=== PATIENT | female | born 1950 | race Caucasian/White ===

== ENCOUNTER 2022-09-20 19:10 | Inpatient (IN) | payer MEDICARE ==
[2022-09-20] MEDS ORDERED: DUONEB 0.5-3 MG/3 ml Neb IH ONE ×2 (19:13→19:24)
[2022-09-20 19:54] LABS: Absolute Neutrophil Ct (ANC) 5.91 x10^3/uL (1.4-6.9); Basophil (Absolute #) 0.04 x10^3/uL (0-0.4); Eosinophil (Absolute #) 0 x10^3/uL (0-0.5); Hematocrit 38.6 % (35-47); Hemoglobin 12.2 g/dL (12.0-16.0); Lymphocyte (Absolute #) 0.82 x10^3/uL (1.0-4.6); Lymphocytes % 10.6 % (24.0-44.0); Mean Cell Volume 94.6 fL (78-100); Mean Corpuscular Hemoglobin 29.9 pg (26-32); Mean Corpuscular Hgb Concent. 31.6 g/dL (32-36); Mean Platelet Volume 10.3 fL (7.5-11.0); Monocyte (Absolute #) 0.89 x10^3/uL (0.0-1.3); Monocytes % 11.5 % (0.0-12.0); Neutrophil % 76.8 % (36.0-66.0); Platelet Count 184 x10^3/uL (150-450); Red Blood Count 4.08 x10^6/uL (4.1-5.4); Red Cell Distribution Width 14.6 % (11.5-14.0); White Blood Count 7.7 x10^3/uL (4.0-10.5)
[2022-09-20 19:54] LABS: A-aADO2 445; ABG HEMOGLOBIN 12.8; ABG POTASSIUM 3.7 (3.5-5.1); ARTERIAL BLD GAS O2 SATURATION 98.8 % (95-100); ARTERIAL BLOOD GAS BASE EXCESS 9.2 (-2.0-2.0); ARTERIAL BLOOD GAS FIO2 100 %; ARTERIAL BLOOD GAS PO2 193 mmHg (75-100); ARTERIAL BLOOD GAS pH 7.39 (7.35-7.45); HCO3- 36.3 (22-28); HGB O2 SAT 89.7 g/dF (94-100); Lactic Acid 1.4 (0.4-2.0)
[2022-09-20 19:55] LABS: ABG SITE RIGHT RADIAL; ALLEN TEST OK? Yes; ARTERIAL BLOOD GAS PCO2 60 mmHg (35-45); CARBOXYHEMOGLOBIN 8.2 % THgb (0.0-6.9)
--- NOTE | 2022-09-20 20:07 | ERPHSYRPT ---
- History of Present Illness Time Seen by Provider: 09/20/22 19:13 Source: patient Exam Limitations: no limitations Patient Subjective Stated Complaint: went to bed at 8pm last night and didn't get up today, was sob, and cough seemed worse today. Triage Nursing Assessment: pt brought in by ambulance. Pts states, "she went to bed at 8pm last night and didn't get up all day". Pt has a chronic smokers cough for years, but the cough has got a little worse. Pt has been weak and fatigued and had a headache for a couple days. Pt was exposed to Flu A on Wednesday. Lungs diminished throughout ant and post, sounds tight. Non-prod cough. 1+ pitting edema to bilat lower ext. Physician History: 72 years old female with history of COPD, tobacco abuse, congestive heart failure presented in the ER via EMS for chief complaint of worsening shortness of breath and cough since last night. Patient reports cough productive of clear to yellow sputum moderate in amount with associated generalized chest tightness. No fever or chills reported. Patient was hypoxic with sats in 70s on EMS arrival, was given Solu-Medrol, DuoNeb and placed on nonrebreather and improved to mid 90s on presentation in the ER. Timing/Duration: yesterday, gradual onset, worse Activities at Onset: rest Severity of Dyspnea-Max: severe Severity of Dyspnea-Current: moderate Possible Cause: unknown cause Modifying Factors: Improves With: oxygen. Worsens With: coughing, exertion Associated Symptoms: cough, chest pain/discomfort, heaviness, leg swelling, productive cough, tightness Allergies/Adverse Reactions: No Known Drug Allergies Allergy (Verified 09/20/22 19:37) Home Medications: Clopidogrel Bisulfate [Plavix] 75 mg PO DAILY 09/20/22 [History] Fluticasone/Salmeterol [Advair 100-50 Diskus] 2 puffs IH DAILY 09/20/22 [History] Furosemide 20 mg [Lasix 20 mg] 20 mg PO TID 09/20/22 [History] Hx Tetanus, Diphtheria Vaccination/Date Given: Yes Hx Influenza Vaccination/Date Given: Yes Hx Pneumococcal Vaccination/Date Given: Yes Immunizations Up to Date: Yes Travel Risk - International Travel Have you traveled outside of the country in past 3 weeks: No - Coronavirus Screening Are you exhibiting any of the following symptoms?: Yes Symptoms: Cough: New Onset, Shortness of Breath, Headaches/Body Aches/Fatigue Close contact with a COVID-19 positive Pt in past 14-21 Days: No - Vaccine Status Have you recieved a Covid-19 vaccination: Yes Patient Accounts Clerk: Moderna - Vaccination Dates Date of 2cond Vaccination (if applicable): . - Review of Systems Constitutional: Fatigue Eyes: No Symptoms Ears, Nose, & Throat: Nose Congestion Respiratory: Cough, Dyspnea, Dyspnea on Exertion (MONTANEZ), Wheezing Cardiac: Edema Abdominal/Gastrointestinal: No Symptoms Genitourinary Symptoms: No Symptoms Musculoskeletal: No Symptoms Skin: No Symptoms Neurological: No Symptoms Psychological: No Symptoms Endocrine: No Symptoms Hematologic/Lymphatic: No Symptoms Immunological/Allergic: No Symptoms - Past Medical History Pertinent Past Medical History: Yes Cardiac History: High Cholesterol, Hypertension Respiratory History: Bronchitis, COPD, Pneumonia, Other Musculoskeletal History: Other GI Medical History: No Pertinent History, Gallbladder Disease History: No Pertinent History Psycho-Social History: No Pertinent History Female Reproductive Disorders: No Pertinent History - Past Surgical History Past Surgical History: Yes Neuro Surgical History: No Pertinent History Cardiac: No Pertinent History Respiratory: No Pertinent History Gastrointestinal: Cholecystectomy Musculoskeletal: No Pertinent History Female Surgical History: Hysterectomy, Tubal Ligation - Social History Smoking Status: Current every day smoker How long have you smoked: 51 years Exposure to second hand smoke: No Drug Use: none Patient Lives Alone: No - Nursing Vital Signs Nursing Vital Signs: Initial Vital Signs Temperature 98.1 F 09/20/22 19:12 Pulse Rate 90 09/20/22 19:12 Respiratory Rate 24 09/20/22 19:12 Blood Pressure 98/61 09/20/22 19:12 O2 Sat by Pulse Oximetry 100 09/20/22 19:12 Pain Scale Pain Intensity 0 - Physical Exam General Appearance: no apparent distress, alert Eye Exam: PERRL/EOMI, eyes nml inspection Ears, Nose, Throat Exam: hearing grossly normal, normal pharynx Neck Exam: normal inspection, non-tender, supple, full range of motion Respiratory Exam: diminished breath sounds, accessory muscle use, crackles/rales, wheezing Cardiovascular/Chest Exam: normal heart sounds, regular rate/rhythm, edema Abdominal/Gastrointestinal Exam: soft, normal bowel sounds, No tenderness Extremity Exam: non-tender, normal range of motion Neurologic Exam: alert, oriented x 3, cooperative, perioperative manager II-XII nml as tested, sensation nml, motor deficits, No normal mood/affect Skin Exam: normal color SpO2 Interpretation: normal, hypoxic, O2 applied SpO2: 100 O2 Delivery: Nasal Cannula Ordered Tests: Active Orders 24 hr Category Date Time Status Medical Voucher Clerk STAT Care 09/20/22 19:14 Active EKG-ER Only STAT Care 09/20/22 19:13 Active IV Insertion STAT Care 09/20/22 19:13 Active Pulse Oximetry (ED) STAT Care 09/20/22 19:13 Active CHEST 1 VIEW (PORTABLE) Stat Exams 09/20/22 19:13 Taken HEAD WITHOUT CONTRAST [CT] Stat Exams 09/20/22 20:18 Taken ARTERIAL BLOOD GASES Stat Lab 09/20/22 19:45 Completed BLOOD CULTURE Stat Lab 09/20/22 17:30 Received CBC W DIFF Stat Lab 09/20/22 17:20 Completed CMP Stat Lab 09/20/22 17:20 Completed Lactic Acid Stat Lab 09/20/22 19:45 Completed MAGNESIUM Stat Lab 09/20/22 17:20 Completed NT PRO BNP Stat Lab 09/20/22 17:20 Completed PROCALCITONIN Stat Lab 09/20/22 17:20 Completed TROPONIN Q4H Lab 09/20/22 17:20 Completed TROPONIN Q4H Lab 09/20/22 23:17 Received TROPONIN Q4H Lab 09/21/22 03:15 Ordered UA W/RFX CULTURE Stat Lab 09/20/22 Ordered Respiratory Therapy Assessment DAILY RT 09/20/22 20:09 Active Transfer Order Routine Transfer 09/20/22 Ordered Medication Summary Generic Name Dose Route Start Last Admin Trade Name Freq PRN Reason Stop Dose Admin Dobutamine HCl/Dextrose 250 mls @ 6.015 mls/hr 09/20/22 23:25 09/20/22 23:26 Dobutrex 500 Mg/D5w 250 Ml IV 10/20/22 23:24 2.5 mcg/kg/min .Q24H PRN 6.015 mls/hr CHF/HYPOTENSION Administration Protocol 2.5 MCG/KG/MIN Discontinued Medications Generic Name Dose Route Start Last Admin Trade Name Freq PRN Reason Stop Dose Admin Albuterol/Ipratropium 3 ml 09/20/22 19:13 09/20/22 19:25 Ipratropium/Albuterol Sulfate 3 Ml Ampul.Neb IH 09/20/22 19:14 3 ml STAT ONE Administration Albuterol/Ipratropium Confirm 09/20/22 19:24 Ipratropium/Albuterol Sulfate 3 Ml Ampul.Neb Administered 09/20/22 19:25 Dose 3 ml IH .STK-MED ONE Aspirin 324 mg 09/20/22 20:51 09/20/22 21:18 Aspirin 81 Mg Tab.Chew PO 09/20/22 20:52 324 mg STAT ONE Administration Ceftriaxone Sodium/Dextrose 2 g in 50 mls @ 100 mls/hr 09/20/22 21:19 09/20/22 22:11 Rocephin 2 Gm-D5w 50ml Bag IV 09/20/22 21:48 100 ml/hr STAT STA 100 mls/hr Administration Azithromycin 500 mg in 250 mls @ 250 mls/hr 09/20/22 21:19 09/20/22 22:34 Zithromax 500 Mg/ 250 Ml Nacl Premix IV 09/20/22 22:18 250 mls/hr STAT STA 250 mls/hr Administration Ceftriaxone Sodium/Dextrose Confirm 09/20/22 22:10 Rocephin 2 Gm-D5w 50ml Bag Administered 09/20/22 22:11 Dose 2 g in 50 mls @ ud IV .STK-MED ONE Oseltamivir Phosphate 75 mg 09/20/22 22:41 09/20/22 22:43 Oseltamivir 75 Mg Cap PO 09/20/22 22:42 75 mg STAT ONE Administration Oseltamivir Phosphate Confirm 09/20/22 22:43 Oseltamivir 75 Mg Cap Administered 09/20/22 22:44 Dose 75 mg PO .STK-MED ONE Lab/Rad Data: Laboratory Result Diagrams 09/20/22 17:20 09/20/22 17:20 Laboratory Results 09/20/22 09/20/22 09/20/22 Range/Units 20:44 19:45 17:20 WBC (4.0-10.5) x10^3/uL RBC (4.1-5.4) x10^6/uL Hgb (12.0-16.0) g/dL Hct (35-47) % MCV (78-100) fL MCH (26-32) pg MCHC (32-36) g/dL RDW (11.5-14.0) % Plt Count (150-450) x10^3/uL MPV (7.5-11.0) fL Gran % (36.0-66.0) % Immature Gran % (Auto) (0.00-0.4) % Nucleat RBC Rel Count (0.00-0.1) % Eos # (Auto) (0-0.5) x10^3/uL Immature Gran # (Auto) (0.00-0.03) x10^3u/L Absolute Lymphs (auto) (1.0-4.6) x10^3/uL Absolute Monos (auto) (0.0-1.3) x10^3/uL Absolute Nucleated RBC (0.00-0.01) x10^3u/L Lymphocytes % (24.0-44.0) % Monocytes % (0.0-12.0) % Eosinophils % (0.00-5.0) % Basophils % (0.0-0.4) % Absolute Granulocytes (1.4-6.9) x10^3/uL Basophils # (0-0.4) x10^3/uL Puncture Site RIGHT RADIAL pCO2 60 H* (35-45) mmHg pO2 193 H* (75-100) mmHg Base Excess 9.2 H (-2.0-2.0) O2 Saturation 89.7 L (94-100) g/dF ABG pH 7.39 (7.35-7.45) ABG HCO3 36.3 H* (22-28) ABG O2 Sat (Measured) 98.8 (95-100) % Nirmal Test Yes A-a Gradient 445 a/A Ratio 0.30 Hemoglobin 12.8 Carboxyhemoglobin 8.2 H* (0.0-6.9) % THgb Methemoglobin 1.0 L (1.4-1.5) % Temperature 37.0 C POC O2 Flow Rate 100 % Sodium (137-145) mmol/L Potassium 3.7 (3.5-5.1) mmol/L Chloride (98-107) mmol/L Carbon Dioxide (22-30) mmol/L Anion Gap (5-15) MEQ/L BUN (7-17) mg/dL Creatinine (0.52-1.04) mg/dL Estimated GFR ML/MIN Glucose (74-106) mg/dL Lactic Acid 1.4 (0.4-2.0) Calcium (8.4-10.2) mg/dL Magnesium (1.6-2.3) mg/dL Total Bilirubin (0.2-1.3) mg/dL AST (14-36) U/L ALT (0-35) U/L Alkaline Phosphatase (38-126) U/L Troponin I (0.000-0.034) ng/mL NT-Pro-B Natriuret Pep (0-900) pg/mL Serum Total Protein (6.3-8.2) g/dL Albumin (3.5-5.0) g/dL Procalcitonin 0.290 H (0.030-0.080) ng/mL Influenza Type A Ag POSITIVE (NEGATIVE) Influenza Type B Ag NEGATIVE (NEGATIVE) RSV (PCR) NEGATIVE (Negative) SARS-CoV-2 (PCR) NEGATIVE (NEGATIVE) 09/20/22 09/20/22 09/20/22 Range/Units 17:20 17:20 17:20 WBC 7.7 (4.0-10.5) x10^3/uL RBC 4.08 L (4.1-5.4) x10^6/uL Hgb 12.2 (12.0-16.0) g/dL Hct 38.6 (35-47) % MCV 94.6 (78-100) fL MCH 29.9 (26-32) pg MCHC 31.6 L (32-36) g/dL RDW 14.6 H (11.5-14.0) % Plt Count 184 (150-450) x10^3/uL MPV 10.3 (7.5-11.0) fL Gran % 76.8 H (36.0-66.0) % Immature Gran % (Auto) 0.6 H (0.00-0.4) % Nucleat RBC Rel Count 0.0 (0.00-0.1) % Eos # (Auto) 0 (0-0.5) x10^3/uL Immature Gran # (Auto) 0.05 H (0.00-0.03) x10^3u/L Absolute Lymphs (auto) 0.82 L (1.0-4.6) x10^3/uL Absolute Monos (auto) 0.89 (0.0-1.3) x10^3/uL Absolute Nucleated RBC 0.00 (0.00-0.01) x10^3u/L Lymphocytes % 10.6 L (24.0-44.0) % Monocytes % 11.5 (0.0-12.0) % Eosinophils % 0.0 (0.00-5.0) % Basophils % 0.5 (0.0-0.4) % Absolute Granulocytes 5.91 (1.4-6.9) x10^3/uL Basophils # 0.04 (0-0.4) x10^3/uL Puncture Site pCO2 (35-45) mmHg pO2 (75-100) mmHg Base Excess (-2.0-2.0) O2 Saturation (94-100) g/dF ABG pH (7.35-7.45) ABG HCO3 (22-28) ABG O2 Sat (Measured) (95-100) % Nirmal Test A-a Gradient a/A Ratio Hemoglobin Carboxyhemoglobin (0.0-6.9) % THgb Methemoglobin (1.4-1.5) % Temperature C POC O2 Flow Rate % Sodium 135 L (137-145) mmol/L Potassium 3.7 (3.5-5.1) mmol/L Chloride 97 L (98-107) mmol/L Carbon Dioxide 35 H (22-30) mmol/L Anion Gap 6.8 (5-15) MEQ/L BUN 48 H (7-17) mg/dL Creatinine 1.60 H (0.52-1.04) mg/dL Estimated GFR 33.9 ML/MIN Glucose 114 H (74-106) mg/dL Lactic Acid (0.4-2.0) Calcium 7.9 L (8.4-10.2) mg/dL Magnesium 2.0 (1.6-2.3) mg/dL Total Bilirubin 0.70 (0.2-1.3) mg/dL AST 37 H (14-36) U/L ALT 40 H (0-35) U/L Alkaline Phosphatase 117 (38-126) U/L Troponin I 0.435 H* (0.000-0.034) ng/mL NT-Pro-B Natriuret Pep 17067 H (0-900) pg/mL Serum Total Protein 6.2 L (6.3-8.2) g/dL Albumin 3.2 L (3.5-5.0) g/dL Procalcitonin (0.030-0.080) ng/mL Influenza Type A Ag (NEGATIVE) Influenza Type B Ag (NEGATIVE) RSV (PCR) (Negative) SARS-CoV-2 (PCR) (NEGATIVE) - Progress Progress: improved Air Movement: fair Progress Note: 09/20/22 21:30 72 years old is evaluated for severe distress earlier, improved with oxygen and DuoNeb along with steroids on presentation in the ER. She switched from nonrebreather to 4 L oxygen with sats in upper 90s. Chest x-ray showed bilateral edema with airspace disease. Started on antibiotics. EKG showed sinus rhythm with no ST elevations but has a troponin of 0.4. Denies any chest pain. She is given aspirin. Patient blood pressure is borderline and she received almost a liter of fluid while in here. I believe patient's symptoms are a combination of respiratory and CHF exacerbation. Since patient blood pressure is low, will not do Lasix today. While in the ER patient's daughter reported that she is not acting well since yesterday and has some confusion and obtain CT head which is negative. She has no focal neurodeficit, do not think she needs any other work-up for neurology standpoint. Discussed with and patient is admitted. 09/20/22 23:34 Patient has positive influenza A, started on Tamiflu. Patient has low blood pressure and is not in CHF, started on dobutamine. Blood Culture(s) Obtained: Yes Antibiotics given: Yes Discussed with : Carlos Will see patient in: hospital (observation) Counseled pt/family regarding: lab results, diagnosis, need for follow-up, rad results - Departure Departure Disposition: In-patient Admission Clinical Impression: Respiratory failure, CHF exacerbation, Pneumonia, Elevated troponin, Influenza A Condition: Fair Critical Care Time: Yes Critical Care Time(excluding separately billable procedures): Critical 30-74 mins Referrals: NEERAJ VACA MD [Primary Care Provider] - Follow up/PCP as directed Instructions: Heart Failure
[2022-09-20 20:12] LABS: ALBUMIN 3.2 g/dL (3.5-5.0); ANION GAP 6.8 MEQ/L (5-15); BILIRUBIN,TOTAL 0.7 mg/dL (0.2-1.3); Calcium 7.9 mg/dL (8.4-10.2); Creatinine 1 1.6 mg/dL (0.52-1.04); EST GLOMERULAR FILTRATION RATE 33.9 ML/MIN; Potassium 3.7 mmol/L (3.5-5.1); Total Protein 6.2 g/dL (6.3-8.2)
[2022-09-20] MEDS ORDERED: BABY ASPIRIN 81 MG CHEW PO ONE (20:51)
[2022-09-20] MEDS ORDERED: Zithromax 500 MG/ 250 ML NaCl Premix 500 MG/250 ML IVPB IV STA (21:19)
[2022-09-20] MEDS ORDERED: ROCEPHIN 2 Gm-D5w 50ML BAG** 2 G/50 ML IVPB IV STA (21:19)
[2022-09-20 21:25] LABS: INFLUENZA B NEGATIVE (NEGATIVE); RESPIRATORY SYNCTIAL VIRUS NEGATIVE (Negative); SARS-CoV-2 Xpert Express NEGATIVE (NEGATIVE)
[2022-09-20 21:46] LABS: INFLUENZA A POSITIVE (NEGATIVE)
[2022-09-20] MEDS ORDERED: ROCEPHIN 2 Gm-D5w 50ML BAG** 2 G/50 ML IVPB IV ONE (22:10)
[2022-09-20] MEDS ORDERED: Tamiflu 75MG Capsule PO ONE ×2 (22:41→22:43)
[2022-09-20] MEDS ORDERED: DOBUTREX 500 MG/D5W 250 ML 250 ML IV PRN (23:25)
[2022-09-21] MEDS ORDERED: Sodium Chloride 0.9% 1000 ML 1,000 ML IV SCH (00:45)
[2022-09-21] MEDS: DUONEB 0.5-3 MG/3 ml Neb IH SCH ×4 (01:06→19:13)
[2022-09-21 03:54] LABS: ALBUMIN 3.3 g/dL (3.5-5.0); ANION GAP 6.9 MEQ/L (5-15); BILIRUBIN,TOTAL 0.4 mg/dL (0.2-1.3); Creatinine 1 1.76 mg/dL (0.52-1.04); EST GLOMERULAR FILTRATION RATE 30.3 ML/MIN; Potassium 3.5 mmol/L (3.5-5.1); Total Protein 6.2 g/dL (6.3-8.2)
[2022-09-21 04:03] LABS: Absolute Neutrophil Ct (ANC) 5.65 x10^3/uL (1.4-6.9); Basophil (Absolute #) 0.02 x10^3/uL (0-0.4); Eosinophil (Absolute #) 0 x10^3/uL (0-0.5); Hematocrit 38.6 % (35-47); Hemoglobin 11.9 g/dL (12.0-16.0); Lymphocyte (Absolute #) 0.42 x10^3/uL (1.0-4.6); Lymphocytes % 6.7 % (24.0-44.0); Mean Cell Volume 95.3 fL (78-100); Mean Corpuscular Hemoglobin 29.4 pg (26-32); Mean Corpuscular Hgb Concent. 30.8 g/dL (32-36); Mean Platelet Volume 10.6 fL (7.5-11.0); Monocyte (Absolute #) 0.15 x10^3/uL (0.0-1.3); Monocytes % 2.4 % (0.0-12.0); Neutrophil % 89.6 % (36.0-66.0); Platelet Count 165 x10^3/uL (150-450); Red Blood Count 4.05 x10^6/uL (4.1-5.4); Red Cell Distribution Width 14.6 % (11.5-14.0); White Blood Count 6.3 x10^3/uL (4.0-10.5)
[2022-09-21 06:22] LABS: Slide Review 1 YES
[2022-09-21] MEDS ORDERED: Dopamine 400 MG/D5W 250ML PREMIX 250 ML IV PRN (08:56)
--- NOTE | 2022-09-21 08:58 | XRAY ---
Indication: Confusion. Stroke. Multiple contiguous axial images obtained through the head without contrast. Comparison: September 07, 2013 Age-appropriate global atrophy and minimal periventricular degenerative micro-ischemia bilaterally. 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 No acute intracranial hemorrhage, abnormal extra-axial fluid collection, or mass effect. Fourth ventricle is midline without hydrocephalus. Bony calvarium intact. Visualized paranasal sinuses and mastoid air cells are clear. 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 Comment: Preliminary interpretation made by [facility]. No critical discrepancy.
--- NOTE | 2022-09-21 09:00 | XRAY ---
Indication: Cough and short of breath. Comparison: September 07, 2013 Portable chest demonstrates new hazy right infrahilar interstitial alveolar opacity without consolidation/large effusion. Remaining heart and left lung unremarkable. Bony thorax intact again with mild osteopenia and mild dextroscoliosis.
[2022-09-21] MEDS ORDERED: Lasix 40 MG/4 ML IV ONE (09:03)
[2022-09-21] MEDS: PROTONIX 40 MG IV IV SCH (09:47)
[2022-09-21] MEDS: ENOXAPARIN SODIUM SQ SCH (09:47)
[2022-09-21] MEDS: Tamiflu 75MG Capsule PO SCH ×2 (09:48→20:42)
[2022-09-21 11:24] LABS: Bacteria RARE /HPF (NEGATIVE); Epithelial Cells RARE /HPF (FEW); Mucus SLIGHT /HPF (NEGATIVE)
[2022-09-21 11:26] LABS: Appearance CLEAR (CLEAR); Bilirubin NEGATIVE (NEGATIVE); Glucose NEGATIVE (NEGATIVE); Ketones NEGATIVE (NEGATIVE); Specific Gravity 1.025 (1.005-1.025)
[2022-09-21 11:27] LABS: Nitrite NEGATIVE (NEGATIVE); Protein,Urine Dip 30 (Negative); RBC NEGATIVE Ery/ul (0-5); Urine Cultured Indicated? YES; Urobilinogen 0.2 mg/dL (0-1)
[2022-09-21 11:30] LABS: Dipstick done @ ? MAIN LAB
[2022-09-21 11:37] LABS: ANION GAP 8.3 MEQ/L (5-15); Creatinine 1 1.85 mg/dL (0.52-1.04); EST GLOMERULAR FILTRATION RATE 28.6 ML/MIN; MAGNESIUM 2.4 mg/dL (1.6-2.3); Potassium 3.4 mmol/L (3.5-5.1)
[2022-09-21] MEDS: PLAVIX Tablet PO SCH (11:45)
[2022-09-21] MEDS: TYLENOL 325 MG PO PRN (13:45)
--- NOTE | 2022-09-21 14:23 | PCM.HP ---
History of Present Illness - Chief Complaint Chief Complaint: CHF exacerbation, Respiratory failure, pneumonia, elevated troponin, LARRY History of Present Illness: is a 72 year old female.with history of COPD, tobacco abuse, congestive heart failure presented in the ER via EMS for chief complaint of worsening shortness of breath and cough since last night. Patient reports cough productive of clear to yellow sputum moderate in amount with associated generalized chest tightness. No fever or chills reported. Patient was hypoxic with sats in 70s on EMS arrival, was given Solu-Medrol, DuoNeb and placed on nonrebreather and improved to mid 90s on presentation in the ER. Timing/Duration: yesterday, gradual onset, worse Activities at Onset: rest Severity of Dyspnea-Max: severe Severity of Dyspnea-Current: moderate Possible Cause: unknown cause Modifying Factors: Improves With: oxygen. Worsens With: coughing, exertion Associated Symptoms: cough, chest pain/discomfort, heaviness, leg swelling, productive cough, tightness - Review of Systems Constitutional: No Fever, No Chills Eyes: No Symptoms Ears, Nose, & Throat: No Symptoms Respiratory: Cough, Short Of Breath Cardiac: Chest Pain, No Edema, No Syncope Abdominal/Gastrointestinal: No Abdominal Pain, No Nausea, No Vomiting, No Diarrhea Genitourinary Symptoms: No Dysuria Musculoskeletal: No Back Pain, No Neck Pain Skin: No Rash Neurological: No Dizziness, No Focal Weakness, No Sensory Changes Psychological: No Symptoms Endocrine: No Symptoms Hematologic/Lymphatic: No Symptoms Immunological/Allergic: No Symptoms Medications & Allergies Home Medications: Home Medication List Clopidogrel Bisulfate [Plavix] 75 mg PO DAILY 09/20/22 [History Confirmed 09/21/22] Fluticasone/Salmeterol [Advair 100-50 Diskus] 2 puffs IH DAILY 09/20/22 [History Confirmed 09/20/22] Furosemide 20 mg [Lasix 20 mg] 40 mg PO BID 09/20/22 [History Confirmed 09/21/22] Atorvastatin Calcium 20 mg PO DAILY 09/21/22 [History Confirmed 09/21/22] Allergies/Adverse Reactions: Allergies Allergy/AdvReac Type Severity Reaction Status Date / Time No Known Drug Allergies Allergy Verified 09/21/22 01:08 - Past Medical History Past Medical History: Yes Neurological History: Stroke ENT History: No Pertinent History Cardiac History: High Cholesterol, Hypertension Respiratory History: Bronchitis, COPD, Pneumonia, Other Endocrine Medical History: No Pertinent History Musculoskelatal History: Other GI Medical History: No Pertinent History, Gallbladder Disease History: Renal Disease Pyscho-Social History: No Pertinent History Reproductive Disorders: No Pertinent History - Female History Are you now?: No - Past Surgical History Past Surgical History: Yes Neuro Surgical History: No Pertinent History Cardiac History: No Pertinent History Respiratory Surgery: No Pertinent History GI Surgical History: Cholecystectomy Genitourinary Surgical Hx: No Pertinent History Musculskeletal Surgical Hx: No Pertinent History Female Surgical History: Hysterectomy, Tubal Ligation - Social History Smoking Status: Current every day smoker How long have you smoked: 51 years Exposure to second hand smoke: No Alcohol: None Drug Use: none - Physical Exam Vital Signs: Vital Signs - 24 hr Temp Pulse Resp BP BP Pulse Ox 09/21/22 14:00 98.1 F 90 23 83/50 96 09/21/22 13:31 83 18 95 09/21/22 13:00 85 16 93/52 97 09/21/22 12:00 79 09/21/22 11:30 82 86/50 09/21/22 11:00 98.1 F 88 24 90/52 90 L 09/21/22 10:46 50 L 89/46 09/21/22 09:46 101 H 93/56 09/21/22 09:30 81 24 93/64 92 L 09/21/22 08:46 96 H 24 88/53 92 L 09/21/22 08:00 97.8 F 101 H 24 81/45 92 L 09/21/22 07:00 94 H 24 87/53 90 L 09/21/22 06:54 92 H 18 96 09/21/22 06:00 89 19 89/53 100 09/21/22 05:00 89 21 89/50 98 09/21/22 04:00 97.3 F 91 H 22 94/51 97 09/21/22 03:00 97.1 F 91 H 22 97/54 93 L 09/21/22 01:12 98.5 F 90 17 93/55 97 09/21/22 01:06 92 H 16 97 09/21/22 00:00 103 H 18 99/58 95 09/20/22 23:53 96 H 20 98/56 95 09/20/22 23:35 100 12/04/22 23:21 77 20 82/58 95 09/20/22 23:00 78 20 78/52 95 09/20/22 22:00 81 24 97/62 96 09/20/22 21:00 83 24 91/65 98 09/20/22 20:16 85 18 92/63 100 09/20/22 19:59 97 09/20/22 19:25 81 28 H 100 09/20/22 19:21 24 100 09/20/22 19:12 98.1 F 90 24 98/61 100 General Appearance: no apparent distress, alert Neurologic Exam: alert, oriented x 3, cooperative, normal mood/affect, nml cerebellar function, nml station & gait, sensation nml, No motor deficits Eye Exam: PERRL/EOMI, eyes nml inspection Ears, Nose, Throat Exam: normal ENT inspection, TMs normal, pharynx normal, moist mucous membranes Neck Exam: normal inspection, non-tender, supple, full range of motion Respiratory Exam: diminished breath sounds, crackles/rales, rhonchi, wheezing, No respiratory distress Cardiovascular Exam: regular rate/rhythm, normal heart sounds, normal peripheral pulses Gastrointestinal/Abdomen Exam: soft, normal bowel sounds, No tenderness, No mass Back Exam: normal inspection, normal range of motion, No CVA tenderness, No vertebral tenderness Extremity Exam: normal inspection, normal range of motion, pelvis stable Skin Exam: normal color, warm, dry, No rash Lymphatic Exam: No adenopathy Results - Labs Lab/Micro Results: Lab Results-Last 24 Hours 09/20/22 09/20/22 09/20/22 Range/Units 17:20 17:20 17:20 WBC 7.7 (4.0-10.5) x10^3/uL RBC 4.08 L (4.1-5.4) x10^6/uL Hgb 12.2 (12.0-16.0) g/dL Hct 38.6 (35-47) % MCV 94.6 (78-100) fL MCH 29.9 (26-32) pg MCHC 31.6 L (32-36) g/dL RDW 14.6 H (11.5-14.0) % Plt Count 184 (150-450) x10^3/uL MPV 10.3 (7.5-11.0) fL Gran % 76.8 H (36.0-66.0) % Immature Gran % (Auto) 0.6 H (0.00-0.4) % Nucleat RBC Rel Count 0.0 (0.00-0.1) % Eos # (Auto) 0 (0-0.5) x10^3/uL Immature Gran # (Auto) 0.05 H (0.00-0.03) x10^3u/L Absolute Lymphs (auto) 0.82 L (1.0-4.6) x10^3/uL Absolute Monos (auto) 0.89 (0.0-1.3) x10^3/uL Absolute Nucleated RBC 0.00 (0.00-0.01) x10^3u/L Lymphocytes % 10.6 L (24.0-44.0) % Monocytes % 11.5 (0.0-12.0) % Eosinophils % 0.0 (0.00-5.0) % Basophils % 0.5 (0.0-0.4) % Absolute Granulocytes 5.91 (1.4-6.9) x10^3/uL Basophils # 0.04 (0-0.4) x10^3/uL Puncture Site pCO2 (35-45) mmHg pO2 (75-100) mmHg Base Excess (-2.0-2.0) O2 Saturation (94-100) g/dF ABG pH (7.35-7.45) ABG HCO3 (22-28) ABG O2 Sat (Measured) (95-100) % Nirmal Test A-a Gradient a/A Ratio Hemoglobin Carboxyhemoglobin (0.0-6.9) % THgb Methemoglobin (1.4-1.5) % Temperature C POC O2 Flow Rate % Sodium 135 L (137-145) mmol/L Potassium 3.7 (3.5-5.1) mmol/L Chloride 97 L (98-107) mmol/L Carbon Dioxide 35 H (22-30) mmol/L Anion Gap 6.8 (5-15) MEQ/L BUN 48 H (7-17) mg/dL Creatinine 1.60 H (0.52-1.04) mg/dL Estimated GFR 33.9 ML/MIN Glucose 114 H (74-106) mg/dL Lactic Acid (0.4-2.0) Calcium 7.9 L (8.4-10.2) mg/dL Magnesium 2.0 (1.6-2.3) mg/dL Total Bilirubin 0.70 (0.2-1.3) mg/dL AST 37 H (14-36) U/L ALT 40 H (0-35) U/L Alkaline Phosphatase 117 (38-126) U/L Troponin I 0.435 H* (0.000-0.034) ng/mL NT-Pro-B Natriuret Pep 07953 H (0-900) pg/mL Serum Total Protein 6.2 L (6.3-8.2) g/dL Albumin 3.2 L (3.5-5.0) g/dL Procalcitonin (0.030-0.080) ng/mL Urinalys Dipstick Clnc Urine Color (YELLOW) Urine Appearance (CLEAR) Urine pH (5-6) Ur Specific [place] (1.005-1.025) POC Urine Protein Conf (Negative) Urine Ketones (NEGATIVE) Urine Nitrite (NEGATIVE) Urine Bilirubin (NEGATIVE) Urine Urobilinogen (0-1) mg/dL Urine Leukocytes (NEGATIVE) Urine WBC (Auto) (0-5) /HPF Urine RBC (Auto) (0-2) /HPF U Hyaline Cast (Auto) (0-2) /LPF U Epithel Cells (Auto) (FEW) /HPF Urine Bacteria (Auto) (NEGATIVE) /HPF Urine RBC (0-5) John/ul Urine Mucus (Auto) (NEGATIVE) /HPF Ur Culture Indicated? Urine Glucose (NEGATIVE) mg/dL Influenza Type A Ag (NEGATIVE) Influenza Type B Ag (NEGATIVE) RSV (PCR) (Negative) SARS-CoV-2 (PCR) (NEGATIVE) Slides for Path Review 09/20/22 09/20/22 09/20/22 Range/Units 17:20 19:45 20:44 WBC (4.0-10.5) x10^3/uL RBC (4.1-5.4) x10^6/uL Hgb (12.0-16.0) g/dL Hct (35-47) % MCV (78-100) fL MCH (26-32) pg MCHC (32-36) g/dL RDW (11.5-14.0) % Plt Count (150-450) x10^3/uL MPV (7.5-11.0) fL Gran % (36.0-66.0) % Immature Gran % (Auto) (0.00-0.4) % Nucleat RBC Rel Count (0.00-0.1) % Eos # (Auto) (0-0.5) x10^3/uL Immature Gran # (Auto) (0.00-0.03) x10^3u/L Absolute Lymphs (auto) (1.0-4.6) x10^3/uL Absolute Monos (auto) (0.0-1.3) x10^3/uL Absolute Nucleated RBC (0.00-0.01) x10^3u/L Lymphocytes % (24.0-44.0) % Monocytes % (0.0-12.0) % Eosinophils % (0.00-5.0) % Basophils % (0.0-0.4) % Absolute Granulocytes (1.4-6.9) x10^3/uL Basophils # (0-0.4) x10^3/uL Puncture Site RIGHT RADIAL pCO2 60 H* (35-45) mmHg pO2 193 H* (75-100) mmHg Base Excess 9.2 H (-2.0-2.0) O2 Saturation 89.7 L (94-100) g/dF ABG pH 7.39 (7.35-7.45) ABG HCO3 36.3 H* (22-28) ABG O2 Sat (Measured) 98.8 (95-100) % Nirmal Test Yes A-a Gradient 445 a/A Ratio 0.30 Hemoglobin 12.8 Carboxyhemoglobin 8.2 H* (0.0-6.9) % THgb Methemoglobin 1.0 L (1.4-1.5) % Temperature 37.0 C POC O2 Flow Rate 100 % Sodium (137-145) mmol/L Potassium 3.7 (3.5-5.1) mmol/L Chloride (98-107) mmol/L Carbon Dioxide (22-30) mmol/L Anion Gap (5-15) MEQ/L BUN (7-17) mg/dL Creatinine (0.52-1.04) mg/dL Estimated GFR ML/MIN Glucose (74-106) mg/dL Lactic Acid 1.4 (0.4-2.0) Calcium (8.4-10.2) mg/dL Magnesium (1.6-2.3) mg/dL Total Bilirubin (0.2-1.3) mg/dL AST (14-36) U/L ALT (0-35) U/L Alkaline Phosphatase (38-126) U/L Troponin I (0.000-0.034) ng/mL NT-Pro-B Natriuret Pep (0-900) pg/mL Serum Total Protein (6.3-8.2) g/dL Albumin (3.5-5.0) g/dL Procalcitonin 0.290 H (0.030-0.080) ng/mL Urinalys Dipstick Clnc Urine Color (YELLOW) Urine Appearance (CLEAR) Urine pH (5-6) Ur Specific [place] (1.005-1.025) POC Urine Protein Conf (Negative) Urine Ketones (NEGATIVE) Urine Nitrite (NEGATIVE) Urine Bilirubin (NEGATIVE) Urine Urobilinogen (0-1) mg/dL Urine Leukocytes (NEGATIVE) Urine WBC (Auto) (0-5) /HPF Urine RBC (Auto) (0-2) /HPF U Hyaline Cast (Auto) (0-2) /LPF U Epithel Cells (Auto) (FEW) /HPF Urine Bacteria (Auto) (NEGATIVE) /HPF Urine RBC (0-5) John/ul Urine Mucus (Auto) (NEGATIVE) /HPF Ur Culture Indicated? Urine Glucose (NEGATIVE) mg/dL Influenza Type A Ag POSITIVE (NEGATIVE) Influenza Type B Ag NEGATIVE (NEGATIVE) RSV (PCR) NEGATIVE (Negative) SARS-CoV-2 (PCR) NEGATIVE (NEGATIVE) Slides for Path Review 09/20/22 09/21/22 09/21/22 Range/Units 23:17 03:38 03:38 WBC 6.3 (4.0-10.5) x10^3/uL RBC 4.05 L (4.1-5.4) x10^6/uL Hgb 11.9 L (12.0-16.0) g/dL Hct 38.6 (35-47) % MCV 95.3 (78-100) fL MCH 29.4 (26-32) pg MCHC 30.8 L (32-36) g/dL RDW 14.6 H (11.5-14.0) % Plt Count 165 (150-450) x10^3/uL MPV 10.6 (7.5-11.0) fL Gran % 89.6 H (36.0-66.0) % Immature Gran % (Auto) 1.0 H (0.00-0.4) % Nucleat RBC Rel Count 0.0 (0.00-0.1) % Eos # (Auto) 0 (0-0.5) x10^3/uL Immature Gran # (Auto) 0.06 H (0.00-0.03) x10^3u/L Absolute Lymphs (auto) 0.42 L (1.0-4.6) x10^3/uL Absolute Monos (auto) 0.15 (0.0-1.3) x10^3/uL Absolute Nucleated RBC 0.00 (0.00-0.01) x10^3u/L Lymphocytes % 6.7 L (24.0-44.0) % Monocytes % 2.4 (0.0-12.0) % Eosinophils % 0.0 (0.00-5.0) % Basophils % 0.3 (0.0-0.4) % Absolute Granulocytes 5.65 (1.4-6.9) x10^3/uL Basophils # 0.02 (0-0.4) x10^3/uL Puncture Site pCO2 (35-45) mmHg pO2 (75-100) mmHg Base Excess (-2.0-2.0) O2 Saturation (94-100) g/dF ABG pH (7.35-7.45) ABG HCO3 (22-28) ABG O2 Sat (Measured) (95-100) % Nirmal Test A-a Gradient a/A Ratio Hemoglobin Carboxyhemoglobin (0.0-6.9) % THgb Methemoglobin (1.4-1.5) % Temperature C POC O2 Flow Rate % Sodium (137-145) mmol/L Potassium (3.5-5.1) mmol/L Chloride (98-107) mmol/L Carbon Dioxide (22-30) mmol/L Anion Gap (5-15) MEQ/L BUN (7-17) mg/dL Creatinine (0.52-1.04) mg/dL Estimated GFR ML/MIN Glucose (74-106) mg/dL Lactic Acid (0.4-2.0) Calcium (8.4-10.2) mg/dL Magnesium (1.6-2.3) mg/dL Total Bilirubin (0.2-1.3) mg/dL AST (14-36) U/L ALT (0-35) U/L Alkaline Phosphatase (38-126) U/L Troponin I 0.446 H* 0.368 H* (0.000-0.034) ng/mL NT-Pro-B Natriuret Pep (0-900) pg/mL Serum Total Protein (6.3-8.2) g/dL Albumin (3.5-5.0) g/dL Procalcitonin (0.030-0.080) ng/mL Urinalys Dipstick Clnc Urine Color (YELLOW) Urine Appearance (CLEAR) Urine pH (5-6) Ur Specific [place] (1.005-1.025) POC Urine Protein Conf (Negative) Urine Ketones (NEGATIVE) Urine Nitrite (NEGATIVE) Urine Bilirubin (NEGATIVE) Urine Urobilinogen (0-1) mg/dL Urine Leukocytes (NEGATIVE) Urine WBC (Auto) (0-5) /HPF Urine RBC (Auto) (0-2) /HPF U Hyaline Cast (Auto) (0-2) /LPF U Epithel Cells (Auto) (FEW) /HPF Urine Bacteria (Auto) (NEGATIVE) /HPF Urine RBC (0-5) John/ul Urine Mucus (Auto) (NEGATIVE) /HPF Ur Culture Indicated? Urine Glucose (NEGATIVE) mg/dL Influenza Type A Ag (NEGATIVE) Influenza Type B Ag (NEGATIVE) RSV (PCR) (Negative) SARS-CoV-2 (PCR) (NEGATIVE) Slides for Path Review YES 09/21/22 09/21/22 09/21/22 Range/Units 03:38 11:22 Unknown WBC (4.0-10.5) x10^3/uL RBC (4.1-5.4) x10^6/uL Hgb (12.0-16.0) g/dL Hct (35-47) % MCV (78-100) fL MCH (26-32) pg MCHC (32-36) g/dL RDW (11.5-14.0) % Plt Count (150-450) x10^3/uL MPV (7.5-11.0) fL Gran % (36.0-66.0) % Immature Gran % (Auto) (0.00-0.4) % Nucleat RBC Rel Count (0.00-0.1) % Eos # (Auto) (0-0.5) x10^3/uL Immature Gran # (Auto) (0.00-0.03) x10^3u/L Absolute Lymphs (auto) (1.0-4.6) x10^3/uL Absolute Monos (auto) (0.0-1.3) x10^3/uL Absolute Nucleated RBC (0.00-0.01) x10^3u/L Lymphocytes % (24.0-44.0) % Monocytes % (0.0-12.0) % Eosinophils % (0.00-5.0) % Basophils % (0.0-0.4) % Absolute Granulocytes (1.4-6.9) x10^3/uL Basophils # (0-0.4) x10^3/uL Puncture Site pCO2 (35-45) mmHg pO2 (75-100) mmHg Base Excess (-2.0-2.0) O2 Saturation (94-100) g/dF ABG pH (7.35-7.45) ABG HCO3 (22-28) ABG O2 Sat (Measured) (95-100) % Nirmal Test A-a Gradient a/A Ratio Hemoglobin Carboxyhemoglobin (0.0-6.9) % THgb Methemoglobin (1.4-1.5) % Temperature C POC O2 Flow Rate % Sodium 138 140 (137-145) mmol/L Potassium 3.5 3.4 L (3.5-5.1) mmol/L Chloride 97 L 99 (98-107) mmol/L Carbon Dioxide 37 H 36 H (22-30) mmol/L Anion Gap 6.9 8.3 (5-15) MEQ/L BUN 53 H 58 H (7-17) mg/dL Creatinine 1.76 H 1.85 H (0.52-1.04) mg/dL Estimated GFR 30.3 28.6 ML/MIN Glucose 180 H 118 H (74-106) mg/dL Lactic Acid (0.4-2.0) Calcium 8.0 L 8.0 L (8.4-10.2) mg/dL Magnesium 2.4 H (1.6-2.3) mg/dL Total Bilirubin 0.40 (0.2-1.3) mg/dL AST 32 (14-36) U/L ALT 39 H (0-35) U/L Alkaline Phosphatase 105 (38-126) U/L Troponin I (0.000-0.034) ng/mL NT-Pro-B Natriuret Pep (0-900) pg/mL Serum Total Protein 6.2 L (6.3-8.2) g/dL Albumin 3.3 L (3.5-5.0) g/dL Procalcitonin (0.030-0.080) ng/mL Urinalys Dipstick Clnc MAIN LAB Urine Color YELLOW (YELLOW) Urine Appearance CLEAR (CLEAR) Urine pH 5.0 (5-6) Ur Specific [place] 1.025 (1.005-1.025) POC Urine Protein Conf 30 A (Negative) Urine Ketones NEGATIVE (NEGATIVE) Urine Nitrite NEGATIVE (NEGATIVE) Urine Bilirubin NEGATIVE (NEGATIVE) Urine Urobilinogen 0.2 (0-1) mg/dL Urine Leukocytes NEGATIVE (NEGATIVE) Urine WBC (Auto) 3-5 A (0-5) /HPF Urine RBC (Auto) NONE (0-2) /HPF U Hyaline Cast (Auto) 11-25 A (0-2) /LPF U Epithel Cells (Auto) RARE (FEW) /HPF Urine Bacteria (Auto) RARE (NEGATIVE) /HPF Urine RBC NEGATIVE (0-5) John/ul Urine Mucus (Auto) SLIGHT A (NEGATIVE) /HPF Ur Culture Indicated? YES Urine Glucose NEGATIVE (NEGATIVE) mg/dL Influenza Type A Ag (NEGATIVE) Influenza Type B Ag (NEGATIVE) RSV (PCR) (Negative) SARS-CoV-2 (PCR) (NEGATIVE) Slides for Path Review - Radiology Impressions Radiology Exams & Impressions: Radiology Procedures Category Date Time Status CHEST 1 VIEW (PORTABLE) Stat Exams 09/20/22 19:13 Completed HEAD WITHOUT CONTRAST [CT] Stat Exams 09/20/22 20:18 Completed - Other Procedures and Tests Respiratory Therapy 09/20/22 20:09 Respiratory Therapy Assessment DAILY 09/21/22 00:07 Oxygen Nasal Cannula 4 lpm Assessment/Plan (1) Sepsis, viral Current Visit: Yes Status: Acute Assessment & Plan: Chief Complaint Diagnosis CHF exacerbation, Respiratory failure, pneumonia , elevated troponin, LARRY Allergies Allergy/AdvReac Type Severity Reaction Status Date / Time No Known Drug Allergies Allergy Verified 09/21/22 01:08 Vital Signs (Last 24 hours) Temp Pulse Resp BP BP Pulse Ox 09/21/22 14:00 98.1 F 90 23 83/50 96 09/21/22 13:31 83 18 95 09/21/22 13:00 85 16 93/52 97 09/21/22 12:00 79 09/21/22 11:30 82 86/50 09/21/22 11:00 98.1 F 88 24 90/52 90 L 09/21/22 10:46 50 L 89/46 09/21/22 09:46 101 H 93/56 09/21/22 09:30 81 24 93/64 92 L 09/21/22 08:46 96 H 24 88/53 92 L 09/21/22 08:00 97.8 F 101 H 24 81/45 92 L 09/21/22 07:00 94 H 24 87/53 90 L 09/21/22 06:54 92 H 18 96 09/21/22 06:00 89 19 89/53 100 09/21/22 05:00 89 21 89/50 98 09/21/22 04:00 97.3 F 91 H 22 94/51 97 09/21/22 03:00 97.1 F 91 H 22 97/54 93 L 09/21/22 01:12 98.5 F 90 17 93/55 97 09/21/22 01:06 92 H 16 97 09/21/22 00:00 103 H 18 99/58 95 09/20/22 23:53 96 H 20 98/56 95 09/20/22 23:35 100 09/20/22 23:21 77 20 82/58 95 09/20/22 23:00 78 20 78/52 95 09/20/22 22:00 81 24 97/62 96 09/20/22 21:00 83 24 91/65 98 09/20/22 20:16 85 18 92/63 100 09/20/22 19:59 97 09/20/22 19:25 81 28 H 100 09/20/22 19:21 24 100 09/20/22 19:12 98.1 F 90 24 98/61 100 Home Medications Medication Instructions Recorded Confirmed Last Taken Type Clopidogrel Bisulfate [Plavix] 75 mg PO DAILY 09/20/22 09/21/22 Unknown History Fluticasone/Salmeterol [Advair 2 puffs IH DAILY 09/20/22 09/20/22 Unknown History 100-50 Diskus] Furosemide 20 mg [Lasix 20 40 mg PO BID 09/20/22 09/21/22 Unknown History mg] Atorvastatin Calcium 20 mg PO DAILY 09/21/22 09/21/22 Unknown History Current Medications Generic Name Dose Route Start Last Admin Trade Name Freq PRN Reason Stop Dose Admin Acetaminophen 650 mg 09/21/22 00:07 09/21/22 13:45 Acetaminophen 325 Mg Tablet PO 10/21/22 00:06 650 mg Q4H PRN PRN Administration PAIN AND/OR FEVER Albuterol/Ipratropium 3 ml 09/21/22 01:00 09/21/22 13:26 Ipratropium/Albuterol Sulfate 3 Ml Ampul.Neb IH 10/21/22 00:59 3 ml Q6HRT WOO Administration Clopidogrel Bisulfate 75 mg 09/21/22 11:00 09/21/22 11:45 Clopidogrel Bisulfate 75 Mg Tablet PO 10/21/22 10:59 75 mg DAILY WOO Administration Enoxaparin Sodium 40 mg 09/21/22 10:00 09/21/22 09:47 Enoxaparin Sodium 40 Mg/0.4 Ml Syringe SQ 10/21/22 09:59 40 mg DAILY WOO Administration Furosemide 40 mg 09/21/22 17:00 Furosemide 40 Mg Tablet PO 10/21/22 16:59 BID DIURETIC WOO Ceftriaxone Sodium/Dextrose 1 g in 50 mls @ 100 mls/hr 09/21/22 22:00 Rocephin 1 Gm-D5w 50 Ml Bag IV 09/24/22 21:59 Q24H22 WOO Azithromycin 500 mg in 250 mls @ 250 mls/hr 09/21/22 22:00 Zithromax 500 Mg/ 250 Ml Nacl Premix IV 10/21/22 21:59 Q24H22 WOO Sodium Chloride 1,000 mls @ 20 mls/hr 09/21/22 00:45 09/21/22 02:25 Sodium Chloride 0.9% 1000 Ml IV 10/21/22 00:44 20 mls/hr .Q24H WOO Administration Dopamine HCl/Dextrose 250 mls @ 7.313 mls/hr 09/21/22 08:56 09/21/22 11:30 Dopamine 400 Mg/D5w 250ml Premix IV 10/21/22 08:55 2.5 mcg/kg/min .Q24H PRN 7.313 mls/hr SEVERE HYPOTENSION Titration Protocol 2.5 MCG/KG/MIN Oseltamivir Phosphate 75 mg 09/21/22 10:00 09/21/22 09:48 Oseltamivir 75 Mg Cap PO 09/26/22 09:59 75 mg BID WOO Administration Pantoprazole Sodium 40 mg 09/21/22 10:00 09/21/22 09:47 Pantoprazole 40 Mg Vial IV 10/21/22 09:59 40 mg Q24H10 WOO Administration Fluticasone/Salmeterol 2 puff 09/21/22 19:00 Fluticasone/Salmeterol 45 60 Puff Common Canister IH 10/21/22 18:59 BIDRT WOO Simvastatin 20 mg 09/21/22 22:00 Simvastatin 20 Mg Tablet PO 10/21/22 21:59 HS WOO Discontinued Medications Generic Name Dose Route Start Last Admin Trade Name Freq PRN Reason Stop Dose Admin Albuterol/Ipratropium 3 ml 09/20/22 19:13 09/20/22 19:25 Ipratropium/Albuterol Sulfate 3 Ml Ampul.Neb IH 09/20/22 19:14 3 ml STAT ONE Administration Albuterol/Ipratropium Confirm 09/20/22 19:24 Ipratropium/Albuterol Sulfate 3 Ml Ampul.Neb Administered 09/20/22 19:25 Dose 3 ml IH .STK-MED ONE Aspirin 324 mg 09/20/22 20:51 09/20/22 21:18 Aspirin 81 Mg Tab.Chew PO 09/20/22 20:52 324 mg STAT ONE Administration Furosemide 40 mg 09/21/22 09:03 09/21/22 09:47 Furosemide 40 Mg/4 Ml Vial IV 09/21/22 09:04 40 mg STAT ONE Administration Ceftriaxone Sodium/Dextrose 2 g in 50 mls @ 100 mls/hr 09/20/22 21:19 09/20/22 22:11 Rocephin 2 Gm-D5w 50ml Bag IV 09/20/22 21:48 100 ml/hr STAT STA 100 mls/hr Administration Azithromycin 500 mg in 250 mls @ 250 mls/hr 09/20/22 21:19 09/20/22 22:34 Zithromax 500 Mg/ 250 Ml Nacl Premix IV 09/20/22 22:18 250 mls/hr STAT STA 250 mls/hr Administration Ceftriaxone Sodium/Dextrose Confirm 09/20/22 22:10 Rocephin 2 Gm-D5w 50ml Bag Administered 09/20/22 22:11 Dose 2 g in 50 mls @ ud IV .STK-MED ONE Dobutamine HCl/Dextrose 250 mls @ 6.015 mls/hr 09/20/22 23:25 09/21/22 07:57 Dobutrex 500 Mg/D5w 250 Ml IV 10/20/22 23:24 4.5 mcg/kg/min .Q24H PRN 10.826 mls/hr CHF/HYPOTENSION Titration Protocol 2.5 MCG/KG/MIN Oseltamivir Phosphate 75 mg 09/20/22 22:41 09/20/22 22:43 Oseltamivir 75 Mg Cap PO 09/20/22 22:42 75 mg STAT ONE Administration Oseltamivir Phosphate Confirm 09/20/22 22:43 Oseltamivir 75 Mg Cap Administered 09/20/22 22:44 Dose 75 mg PO .STK-MED ONE Intake & Output (Last 24 hours) 09/19/22 09/20/22 09/21/22 09/22/22 11:59 11:59 11:59 11:59 Intake Total 108 Output Total 825 Balance -717 Weight 78 kg Microbiology Results (Last 24 hours) 09/21/22 Unknown Urine, Catheterized Urine Culture - Pending 09/20/22 17:30 Blood Blood Culture Gram Stain - Pending 09/20/22 17:30 Blood Blood Culture - Pending 09/20/22 17:20 Blood Blood Culture Gram Stain - Pending 09/20/22 17:20 Blood Blood Culture - Pending Laboratory Results (Last 24 hours) 09/21/22 09/21/22 09/21/22 Unknown 11:22 03:38 WBC RBC Hgb Hct MCV MCH MCHC RDW Plt Count MPV Gran % Immature Gran % (Auto) Nucleat RBC Rel Count Eos # (Auto) Immature Gran # (Auto) Absolute Lymphs (auto) Absolute Monos (auto) Absolute Nucleated RBC Lymphocytes % Monocytes % Eosinophils % Basophils % Absolute Granulocytes Basophils # Puncture Site pCO2 pO2 Base Excess O2 Saturation ABG pH ABG HCO3 ABG O2 Sat (Measured) Nirmal Test A-a Gradient a/A Ratio Hemoglobin Carboxyhemoglobin Methemoglobin Temperature POC O2 Flow Rate Sodium 140 138 Potassium 3.4 L 3.5 Chloride 99 97 L Carbon Dioxide 36 H 37 H Anion Gap 8.3 6.9 BUN 58 H 53 H Creatinine 1.85 H 1.76 H Estimated GFR 28.6 30.3 Glucose 118 H 180 H Lactic Acid Calcium 8.0 L 8.0 L Magnesium 2.4 H Total Bilirubin 0.40 AST 32 ALT 39 H Alkaline Phosphatase 105 Troponin I NT-Pro-B Natriuret Pep Serum Total Protein 6.2 L Albumin 3.3 L Procalcitonin Urinalys Dipstick Clnc MAIN LAB Urine Color YELLOW Urine Appearance CLEAR Urine pH 5.0 Ur Specific [place] 1.025 POC Urine Protein Conf 30 A Urine Ketones NEGATIVE Urine Nitrite NEGATIVE Urine Bilirubin NEGATIVE Urine Urobilinogen 0.2 Urine Leukocytes NEGATIVE Urine WBC (Auto) 3-5 A Urine RBC (Auto) NONE U Hyaline Cast (Auto) 11-25 A U Epithel Cells (Auto) RARE Urine Bacteria (Auto) RARE Urine RBC NEGATIVE Urine Mucus (Auto) SLIGHT A Ur Culture Indicated? YES Urine Glucose NEGATIVE Influenza Type A Ag Influenza Type B Ag RSV (PCR) SARS-CoV-2 (PCR) Slides for Path Review 09/21/22 09/21/22 09/20/22 03:38 03:38 23:17 WBC 6.3 RBC 4.05 L Hgb 11.9 L Hct 38.6 MCV 95.3 MCH 29.4 MCHC 30.8 L RDW 14.6 H Plt Count 165 MPV 10.6 Gran % 89.6 H Immature Gran % (Auto) 1.0 H Nucleat RBC Rel Count 0.0 Eos # (Auto) 0 Immature Gran # (Auto) 0.06 H Absolute Lymphs (auto) 0.42 L Absolute Monos (auto) 0.15 Absolute Nucleated RBC 0.00 Lymphocytes % 6.7 L Monocytes % 2.4 Eosinophils % 0.0 Basophils % 0.3 Absolute Granulocytes 5.65 Basophils # 0.02 Puncture Site pCO2 pO2 Base Excess O2 Saturation ABG pH ABG HCO3 ABG O2 Sat (Measured) Nirmal Test A-a Gradient a/A Ratio Hemoglobin Carboxyhemoglobin Methemoglobin Temperature POC O2 Flow Rate Sodium Potassium Chloride Carbon Dioxide Anion Gap BUN Creatinine Estimated GFR Glucose Lactic Acid Calcium Magnesium Total Bilirubin AST ALT Alkaline Phosphatase Troponin I 0.368 H* 0.446 H* NT-Pro-B Natriuret Pep Serum Total Protein Albumin Procalcitonin Urinalys Dipstick Clnc Urine Color Urine Appearance Urine pH Ur Specific [place] POC Urine Protein Conf Urine Ketones Urine Nitrite Urine Bilirubin Urine Urobilinogen Urine Leukocytes Urine WBC (Auto) Urine RBC (Auto) U Hyaline Cast (Auto) U Epithel Cells (Auto) Urine Bacteria (Auto) Urine RBC Urine Mucus (Auto) Ur Culture Indicated? Urine Glucose Influenza Type A Ag Influenza Type B Ag RSV (PCR) SARS-CoV-2 (PCR) Slides for Path Review YES 09/20/22 09/20/22 09/20/22 20:44 19:45 17:20 WBC RBC Hgb Hct MCV MCH MCHC RDW Plt Count MPV Gran % Immature Gran % (Auto) Nucleat RBC Rel Count Eos # (Auto) Immature Gran # (Auto) Absolute Lymphs (auto) Absolute Monos (auto) Absolute Nucleated RBC Lymphocytes % Monocytes % Eosinophils % Basophils % Absolute Granulocytes Basophils # Puncture Site RIGHT RADIAL pCO2 60 H* pO2 193 H* Base Excess 9.2 H O2 Saturation 89.7 L ABG pH 7.39 ABG HCO3 36.3 H* ABG O2 Sat (Measured) 98.8 Nirmal Test Yes A-a Gradient 445 a/A Ratio 0.30 Hemoglobin 12.8 Carboxyhemoglobin 8.2 H* Methemoglobin 1.0 L Temperature 37.0 POC O2 Flow Rate 100 Sodium Potassium 3.7 Chloride Carbon Dioxide Anion Gap BUN Creatinine Estimated GFR Glucose Lactic Acid 1.4 Calcium Magnesium Total Bilirubin AST ALT Alkaline Phosphatase Troponin I NT-Pro-B Natriuret Pep Serum Total Protein Albumin Procalcitonin 0.290 H Urinalys Dipstick Clnc Urine Color Urine Appearance Urine pH Ur Specific [place] POC Urine Protein Conf Urine Ketones Urine Nitrite Urine Bilirubin Urine Urobilinogen Urine Leukocytes Urine WBC (Auto) Urine RBC (Auto) U Hyaline Cast (Auto) U Epithel Cells (Auto) Urine Bacteria (Auto) Urine RBC Urine Mucus (Auto) Ur Culture Indicated? Urine Glucose Influenza Type A Ag POSITIVE Influenza Type B Ag NEGATIVE RSV (PCR) NEGATIVE SARS-CoV-2 (PCR) NEGATIVE Slides for Path Review 09/20/22 09/20/22 09/20/22 17:20 17:20 17:20 WBC 7.7 RBC 4.08 L Hgb 12.2 Hct 38.6 MCV 94.6 MCH 29.9 MCHC 31.6 L RDW 14.6 H Plt Count 184 MPV 10.3 Gran % 76.8 H Immature Gran % (Auto) 0.6 H Nucleat RBC Rel Count 0.0 Eos # (Auto) 0 Immature Gran # (Auto) 0.05 H Absolute Lymphs (auto) 0.82 L Absolute Monos (auto) 0.89 Absolute Nucleated RBC 0.00 Lymphocytes % 10.6 L Monocytes % 11.5 Eosinophils % 0.0 Basophils % 0.5 Absolute Granulocytes 5.91 Basophils # 0.04 Puncture Site pCO2 pO2 Base Excess O2 Saturation ABG pH ABG HCO3 ABG O2 Sat (Measured) Nirmal Test A-a Gradient a/A Ratio Hemoglobin Carboxyhemoglobin Methemoglobin Temperature POC O2 Flow Rate Sodium 135 L Potassium 3.7 Chloride 97 L Carbon Dioxide 35 H Anion Gap 6.8 BUN 48 H Creatinine 1.60 H Estimated GFR 33.9 Glucose 114 H Lactic Acid Calcium 7.9 L Magnesium 2.0 Total Bilirubin 0.70 AST 37 H ALT 40 H Alkaline Phosphatase 117 Troponin I 0.435 H* NT-Pro-B Natriuret Pep 43043 H Serum Total Protein 6.2 L Albumin 3.2 L Procalcitonin Urinalys Dipstick Clnc Urine Color Urine Appearance Urine pH Ur Specific [place] POC Urine Protein Conf Urine Ketones Urine Nitrite Urine Bilirubin Urine Urobilinogen Urine Leukocytes Urine WBC (Auto) Urine RBC (Auto) U Hyaline Cast (Auto) U Epithel Cells (Auto) Urine Bacteria (Auto) Urine RBC Urine Mucus (Auto) Ur Culture Indicated? Urine Glucose Influenza Type A Ag Influenza Type B Ag RSV (PCR) SARS-CoV-2 (PCR) Slides for Path Review Orders (Last 24 hours) Category Date Time Status Bedrest ROUTINE Activity 09/21/22 00:07 Active Admit as Inpatient ROUTINE Care 09/21/22 00:07 Active Call Admit Doctor for Orders ON ADMISSION Care 09/21/22 00:07 Completed Channel Account Manager STAT Care 09/20/22 19:14 Completed Code Status Order ROUTINE Care 09/21/22 00:07 Active EKG-ER Only STAT Care 09/20/22 19:13 Completed Fall Protocol Q1H Care 09/21/22 00:07 Active IV Care Q4H Care 09/21/22 00:07 Active IV Insertion STAT Care 09/20/22 19:13 Completed Neuro Checks Q4H Care 09/21/22 00:07 Active Pulse Oximetry (ED) STAT Care 09/20/22 19:13 Completed Weight,Daily 0600 Care 09/21/22 00:07 Active Heart-Healthy Diet Diet 09/21/22 Breakfast Active CHEST 1 VIEW (PORTABLE) Stat Exams 09/20/22 19:13 Completed HEAD WITHOUT CONTRAST [CT] Stat Exams 09/20/22 20:18 Completed ARTERIAL BLOOD GASES Stat Lab 09/20/22 19:45 Completed BLOOD CULTURE Stat Lab 09/20/22 17:30 Received BMP Urgent Lab 09/21/22 11:22 Completed CBC W DIFF AM.LAB Lab 09/21/22 03:38 Completed CBC W DIFF Stat Lab 09/20/22 17:20 Completed CMP AM.LAB Lab 09/21/22 03:38 Completed CMP Stat Lab 09/20/22 17:20 Completed COVID/FLU/RSV Panel Stat Lab 09/20/22 20:44 Completed CULTURE,URINE Stat Lab 09/21/22 Received Lactic Acid Stat Lab 09/20/22 19:45 Completed MAG [MAGNESIUM] Urgent Lab 09/21/22 11:22 Completed MAGNESIUM Stat Lab 09/20/22 17:20 Completed NT PRO BNP Stat Lab 09/20/22 17:20 Completed PROCALCITONIN Stat Lab 09/20/22 17:20 Completed TROPONIN Q4H Lab 09/20/22 17:20 Completed TROPONIN Q4H Lab 09/20/22 23:17 Completed TROPONIN Q4H Lab 09/21/22 03:38 Completed UA W/RFX CULTURE Stat Lab 09/21/22 Completed Acetaminophen 325 mg [Tylenol 325 mg] Med 09/21/22 00:07 Active 650 mg PO Q4H PRN PRN Albuterol/Ipratropium 3ml Neb* [DUONEB 0.5-3 MG/3 ml Med 09/20/22 19:24 Disco ntinued Neb] 3 ml IH .STK-MED ONE Albuterol/Ipratropium 3ml Neb* [DUONEB 0.5-3 MG/3 ml Med 09/21/22 01:00 Active Neb] 3 ml IH Q6HRT Albuterol/Ipratropium 3ml Neb* [DUONEB 0.5-3 MG/3 ml Med 09/20/22 19:13 Discontinued Neb] 3 ml IH STAT ONE Aspirin 81 gm Chew [Baby Aspirin 81 mg Chew] Med 09/20/22 20:51 Discontinued 324 mg PO STAT ONE Azithromycin 500 mg/250 ml [Zithromax 500 MG/ 250 ML Med 09/21/22 22:00 Active NaCl Premix] 500 mg in 250 ml IV Q24H22 Azithromycin 500 mg/250 ml [Zithromax 500 MG/ 250 ML Med 09/20/22 21:19 Discontinued NaCl Premix] 500 mg in 250 ml IV STAT Ceftriaxone 1 GM/50 ML PREMIX* [ROCEPHIN 1 Gm-D5w 50 ml Med 09/21/22 22:00 Active Bag] 1 g in 50 ml IV Q24H22 Ceftriaxone 2 GM/50 ML PREMIX* [ROCEPHIN 2 Gm-D5w 50ML Med 09/20/22 21:19 Discontinued BAG] 2 g in 50 ml IV STAT Ceftriaxone 2 GM/50 ML PREMIX* [ROCEPHIN 2 Gm-D5w 50ML Med 09/20/22 22:10 Dis continued BAG] 2 g in 50 ml IV UD Clopidogrel Bisulfate [PLAVIX Tablet] Med 09/21/22 11:00 Active 75 mg PO DAILY Dobutamine HCl/D5w Premix [Dobutrex 500 mg/D5w 250 ml] Med 09/20/22 23:25 Discontinued 250 ml IV 2.5 mcg/kg/min Dopamine HCl/Dextrose 5%-Water [Dopamine 400 MG/D5W Med 09/21/22 08:56 Active 250ML PREMIX] 250 ml IV 2.5 mcg/kg/min Enoxaparin Sodium [Enoxaparin Sodium] Med 09/21/22 10:00 Active 40 mg SQ DAILY Fluticasone/Salmeterol 45 [Advair Hfa 45 Common Med 09/21/22 19:00 Active Canister*] 2 puff IH BIDRT Furosemide 40 mg [Lasix 40 MG] Med 09/21/22 17:00 Active 40 mg PO BID DIURETIC Furosemide 40 mg/4 ml [Lasix 40 MG/4 ML] Med 09/21/22 09:03 Discontinued 40 mg IV STAT ONE NaCl 0.9% 1000 ml [Sodium Chloride 0.9% 1000 ML] 1,000 Med 09/21/22 00:45 Active ml IV 20 mls/hr Oseltamivir 75 mg [Tamiflu 75MG Capsule] Med 09/20/22 22:43 Discontinued 75 mg PO .STK-MED ONE Oseltamivir 75 mg [Tamiflu 75MG Capsule] Med 09/21/22 10:00 Active 75 mg PO BID Oseltamivir 75 mg [Tamiflu 75MG Capsule] Med 09/20/22 22:41 Discontinued 75 mg PO STAT ONE Pantoprazole 40 mg [Protonix 40 mg IV] Med 09/21/22 10:00 Active 40 mg IV Q24H10 Simvastatin 20Mg [Zocor 20Mg] Med 09/21/22 22:00 Active 20 mg PO HS Oxygen Nasal Cannula 4 lpm RT 09/21/22 00:07 Active Pulse Oximetry .continuos RT 09/21/22 00:49 Active RT Screen per Nursing Assess ONCE RT 09/21/22 01:29 Completed Respiratory Therapy Assessment DAILY RT 09/20/22 20:09 Active Smoking Cessation Education ONCE RT 09/21/22 01:29 Completed Patient Care Notes (Last 24 hours) 09/21/22 12:49 Respiratory Note by She Vega Patient states she will have her bring in her Advair from home to use while patient is here. Initialized on 09/21/22 12:49 - END OF NOTE 09/21/22 11:40 Case Management Note by Yana Garcia ATTEMPTED TO REACH PATIENT VIA TELEPHONE AND NO ANSWER. WILL F/U TOMORROW TO CHECK ON DC NEEDS. Initialized on 09/21/22 11:40 - END OF NOTE Code(s): A41.89 - OTHER SPECIFIED SEPSIS; B97.89 - OTH VIRAL AGENTS THE CAUSE OF DISEASES CLASSD [id number] (2) CHF exacerbation Current Visit: Yes Status: Acute Code(s): I50.9 - HEART FAILURE, UNSPECIFIED (3) Elevated troponin Current Visit: Yes Status: Acute Code(s): R77.8 - OTHER SPECIFIED ABNORMALITIES OF PLASMA PROTEINS (4) Influenza A Current Visit: Yes Status: Acute Code(s): J10.1 - FLU DUE TO OTH IDENT INFLUENZA VIRUS W OTH RESP MANIFEST (5) Pneumonia Current Visit: Yes Status: Acute Code(s): J18.9 - PNEUMONIA, UNSPECIFIED ORGANISM
[2022-09-21] MEDS ORDERED: Lasix 40 MG PO SCH (17:00)
[2022-09-21] MEDS: Lasix 40 MG/4 ML IV SCH (18:37)
[2022-09-21] MEDS ORDERED: ADVAIR HFA 45/21 COMMON CANISTER IH SCH (19:00)
[2022-09-21 19:32] LABS: A-aADO2 52; ABG HEMOGLOBIN 12.6; ABG POTASSIUM 3.3 (3.5-5.1); ABG SITE RIGHT BRACHIAL; ARTERIAL BLD GAS O2 SATURATION 99.4 % (95-100); ARTERIAL BLOOD GAS BASE EXCESS 10.1 (-2.0-2.0); ARTERIAL BLOOD GAS FIO2 50 %; ARTERIAL BLOOD GAS PCO2 83 mmHg (35-45); ARTERIAL BLOOD GAS PO2 201 mmHg (75-100); ARTERIAL BLOOD GAS pH 7.29 (7.35-7.45); CARBOXYHEMOGLOBIN 1.6 % THgb (0.0-6.9); HCO3- 39.9 (22-28); HGB O2 SAT 97.3 g/dF (94-100); Methhemoglobin 0.5 % (1.4-1.5)
[2022-09-21] MEDS: ZOCOR 20MG PO SCH ×2 (20:42→20:50)
[2022-09-21] MEDS: ROCEPHIN 1 Gm-D5w 50 ml Bag** 1 G/50 ML IVPB IV SCH (20:42)
[2022-09-21] MEDS: Klor Con PO SCH (20:50)
[2022-09-21] MEDS: Zithromax 500 MG/ 250 ML NaCl Premix 500 MG/250 ML IVPB IV SCH (20:52)
[2022-09-21] MEDS ORDERED: LASIX 20 MG PO SCH (22:00)
[2022-09-22] MEDS: DUONEB 0.5-3 MG/3 ml Neb IH SCH ×4 (01:25→18:39)
[2022-09-22] MEDS: Lasix 40 MG/4 ML IV SCH (05:50)
[2022-09-22] MEDS ORDERED: BABY ASPIRIN 81 MG CHEW PO SCH (10:00)
[2022-09-22] MEDS ORDERED: FLUTICASONE IH SCH (10:00)
[2022-09-22] MEDS ORDERED: NON-FORMULARY ITEM (Atorvastatin Calcium [Atorvastatin Calcium] 20 MG Tablet) PO SCH (10:00)
[2022-09-22] MEDS ORDERED: SALMETEROL IH SCH (10:00)
[2022-09-22] MEDS: PROTONIX 40 MG IV IV SCH (12:09)
[2022-09-22] MEDS: ECOTRIN 81 MG PO SCH (12:10)
[2022-09-22] MEDS: ENOXAPARIN SODIUM SQ SCH (12:10)
[2022-09-22] MEDS: Klor Con PO SCH (12:10)
[2022-09-22] MEDS: PLAVIX Tablet PO SCH (12:10)
[2022-09-22] MEDS: Tamiflu 75MG Capsule PO SCH ×2 (12:10→21:53)
--- NOTE | 2022-09-22 12:17 | XRAY ---
Indication: Acute mental status change. Sagittal, coronal, and axial MRI brain performed without contrast using T1, T2, FLAIR, diffusion, and ADC sequences. 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 No acute intracranial hemorrhage, abnormal extra-axial fluid collection, or mass effect. Diffusion images demonstrates 4 mm focus restrictive signal medial right temporal lobe favoring acute ischemia. Fourth ventricle is midline without hydrocephalus. 7/8 cranial nerve complex bilaterally symmetric. Normal flow-void signal within the major intracerebral circulation. Normal appearing craniocervical junction and sella turcica. Paranasal sinuses are clear. Impression: 1. 4 mm focus acute ischemia medial right temporal lobe. 2. Atrophy and degenerative micro-ischemia within normal limits for patient's age. 3. 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
[2022-09-22 12:19] LABS: Hematocrit 42.7 % (35-47); Hemoglobin 12.8 g/dL (12.0-16.0); Mean Cell Volume 98.6 fL (78-100); Mean Corpuscular Hemoglobin 29.6 pg (26-32); Mean Platelet Volume 10.3 fL (7.5-11.0); Platelet Count 193 x10^3/uL (150-450); Red Blood Count 4.33 x10^6/uL (4.1-5.4); Red Cell Distribution Width 14.6 % (11.5-14.0); White Blood Count 8.9 x10^3/uL (4.0-10.5)
[2022-09-22 12:33] LABS: ALBUMIN 3.5 g/dL (3.5-5.0); BILIRUBIN,TOTAL 0.4 mg/dL (0.2-1.3); Creatinine 1 1.71 mg/dL (0.52-1.04); EST GLOMERULAR FILTRATION RATE 31.4 ML/MIN; Potassium 3.9 mmol/L (3.5-5.1); Total Protein 6.6 g/dL (6.3-8.2)
[2022-09-22 13:29] LABS: ANION GAP 3.9 MEQ/L (5-15)
[2022-09-22] MEDS: TYLENOL 325 MG PO PRN (15:44)
[2022-09-22] MEDS ORDERED: K-LYTE PO ONE (17:15)
--- NOTE | 2022-09-22 17:38 | PCM.NOTE ---
Date and Time: 09/22/22 4095 Subjective Assessment: last 24 hours events noted. Labs MRI brain reviewed - Review of Systems Constitutional: Weakness, No Fever, No Chills Eyes: No Symptoms Ears, Nose, & Throat: No Symptoms Respiratory: No Cough, No Short Of Breath Cardiac: No Chest Pain, No Edema, No Syncope Abdominal/Gastrointestinal: No Abdominal Pain, No Nausea, No Vomiting, No Diarrhea Genitourinary Symptoms: No Dysuria Musculoskeletal: No Back Pain, No Neck Pain Skin: No Rash Neurological: No Dizziness, No Focal Weakness, No Sensory Changes Psychological: No Symptoms Endocrine: No Symptoms Hematologic/Lymphatic: No Symptoms Immunological/Allergic: No Symptoms Objective Exam General Appearance: no apparent distress, alert Neurologic Exam: alert, oriented x 3, cooperative, normal mood/affect, nml cerebellar function, sensation nml, No motor deficits Skin Exam: normal color, warm, dry Eye Exam: PERRL, EOMI, eyes nml inspection Ears, Nose, Throat Exam: normal ENT inspection, pharynx normal, moist mucous membranes Neck Exam: normal inspection, non-tender, supple, full range of motion Respiratory Exam: normal breath sounds, lungs clear, No respiratory distress Cardiovascular Exam: regular rate/rhythm, normal heart sounds Gastrointestinal/Abdomen Exam: soft, No tenderness, No mass Extremity Exam: normal inspection, normal range of motion Back Exam: normal inspection, normal range of motion, No CVA tenderness, No vertebral tenderness Pelvic Exam: deferred Rectal Exam: deferred OBJECTIVE DATA Vital Signs: Vital Signs - 24 hr Temp Pulse Resp BP Pulse Ox 09/22/22 16:00 98.2 F 78 24 109/56 92 L 09/22/22 13:46 76 18 96 09/22/22 12:00 97.9 F 71 16 102/56 93 L 09/22/22 07:45 97.5 F 78 16 116/64 97 09/22/22 05:22 75 18 97 09/22/22 04:00 97.1 F 77 18 100/62 98 09/22/22 01:25 74 18 95 09/21/22 20:00 97.3 F 79 20 107/66 83 L 09/21/22 19:13 77 20 96 Pain Assessment - Last Documented Pain Intensity 9 Pain Scale Used 0-10 Pain Scale Intake and Output: Intake & Output 09/20/22 09/21/22 09/22/2222 11:59 11:59 11:59 11:59 Intake Total 108 780 Output Total 825 450 Balance -717 330 Weight 78 kg 77.3 kg Lab Results: Lab Results-Last 24 Hours 09/21/22 09/22/22 09/22/22 Range/Units 19:26 12:19 12:19 WBC 8.9 (4.0-10.5) x10^3/uL RBC 4.33 (4.1-5.4) x10^6/uL Hgb 12.8 (12.0-16.0) g/dL Hct 42.7 (35-47) % MCV 98.6 (78-100) fL MCH 29.6 (26-32) pg MCHC 30.0 L (32-36) g/dL RDW 14.6 H (11.5-14.0) % Plt Count 193 (150-450) x10^3/uL MPV 10.3 (7.5-11.0) fL Puncture Site RIGHT BRACHIAL pCO2 83 H* (35-45) mmHg pO2 201 H* (75-100) mmHg Base Excess 10.1 H (-2.0-2.0) O2 Saturation 97.3 (94-100) g/dF ABG pH 7.29 L (7.35-7.45) ABG HCO3 39.9 H* (22-28) ABG O2 Sat (Measured) 99.4 (95-100) % Nirmal Test NOT APPLICABLE A-a Gradient 52 a/A Ratio 0.79 Hemoglobin 12.6 Carboxyhemoglobin 1.6 (0.0-6.9) % THgb Methemoglobin 0.5 L (1.4-1.5) % Potassium 3.3 L 3.9 (3.5-5.1) Temperature 37.0 C POC O2 Flow Rate 50 % Sodium 142 (137-145) mmol/L Chloride 96 L (98-107) mmol/L Carbon Dioxide 46 H (22-30) mmol/L Anion Gap 3.9 L (5-15) MEQ/L BUN 54 H (7-17) mg/dL Creatinine 1.71 H (0.52-1.04) mg/dL Estimated GFR 31.4 ML/MIN Glucose 78 (74-106) mg/dL Calcium 8.0 L (8.4-10.2) mg/dL Total Bilirubin 0.40 (0.2-1.3) mg/dL AST 32 (14-36) U/L ALT 41 H (0-35) U/L Alkaline Phosphatase 107 (38-126) U/L Troponin I (0.000-0.034) ng/mL Serum Total Protein 6.6 (6.3-8.2) g/dL Albumin 3.5 (3.5-5.0) g/dL 09/22/22 Range/Units 12:19 WBC (4.0-10.5) x10^3/uL RBC (4.1-5.4) x10^6/uL Hgb (12.0-16.0) g/dL Hct (35-47) % MCV (78-100) fL MCH (26-32) pg MCHC (32-36) g/dL RDW (11.5-14.0) % Plt Count (150-450) x10^3/uL MPV (7.5-11.0) fL Puncture Site pCO2 (35-45) mmHg pO2 (75-100) mmHg Base Excess (-2.0-2.0) O2 Saturation (94-100) g/dF ABG pH (7.35-7.45) ABG HCO3 (22-28) ABG O2 Sat (Measured) (95-100) % Nirmal Test A-a Gradient a/A Ratio Hemoglobin Carboxyhemoglobin (0.0-6.9) % THgb Methemoglobin (1.4-1.5) % Potassium (3.5-5.1) Temperature C POC O2 Flow Rate % Sodium (137-145) mmol/L Chloride (98-107) mmol/L Carbon Dioxide (22-30) mmol/L Anion Gap (5-15) MEQ/L BUN (7-17) mg/dL Creatinine (0.52-1.04) mg/dL Estimated GFR ML/MIN Glucose (74-106) mg/dL Calcium (8.4-10.2) mg/dL Total Bilirubin (0.2-1.3) mg/dL AST (14-36) U/L ALT (0-35) U/L Alkaline Phosphatase (38-126) U/L Troponin I 0.171 H* (0.000-0.034) ng/mL Serum Total Protein (6.3-8.2) g/dL Albumin (3.5-5.0) g/dL Radiology Exams: Radiology Procedures Category Date Time Status CHEST 1 VIEW (PORTABLE) Stat Exams 09/20/22 19:13 Completed ECHO W/2D AND DOPPLER [US] Routine Exams 09/22/22 11:23 Taken HEAD WITHOUT CONTRAST [CT] Stat Exams 09/20/22 20:18 Completed MRI BRAIN W/O CONTRAST [MRI] Routine Exams 09/22/22 02:29 Completed Assessment/Plan (1) Sepsis, viral Current Visit: Yes Status: Acute Assessment & Plan: Chief Complaint Diagnosis CHF exacerbation, Respiratory failure, pneumonia , elevated troponin, LARRY Allergies Allergy/AdvReac Type Severity Reaction Status Date / Time No Known Drug Allergies Allergy Verified 09/21/22 01:08 Vital Signs (Last 24 hours) Temp Pulse Resp BP Pulse Ox 09/22/22 16:00 98.2 F 78 24 109/56 92 L 09/22/22 13:46 76 18 96 09/22/22 12:00 97.9 F 71 16 102/56 93 L 09/22/22 07:45 97.5 F 78 16 116/64 97 09/22/22 05:22 75 18 97 09/22/22 04:00 97.1 F 77 18 100/62 98 09/22/22 01:25 74 18 95 09/21/22 20:00 97.3 F 79 20 107/66 83 L 09/21/22 19:13 77 20 96 Home Medications Medication Instructions Recorded Confirmed Last Taken Type Clopidogrel Bisulfate [Plavix] 75 mg PO DAILY 09/20/22 09/21/22 Unknown History Fluticasone/Salmeterol [Advair 2 puffs IH DAILY 09/20/22 09/20/22 Unknown History 100-50 Diskus] Furosemide 20 mg [Lasix 20 40 mg PO BID 09/20/22 09/21/22 Unknown History mg] Atorvastatin Calcium 20 mg PO DAILY 09/21/22 09/21/22 Unknown History Current Medications Generic Name Dose Route Start Last Admin Trade Name Freq PRN Reason Stop Dose Admin Acetaminophen 650 mg 09/21/22 00:07 09/22/22 15:44 Acetaminophen 325 Mg Tablet PO 10/21/22 00:06 650 mg Q4H PRN PRN Administration PAIN AND/OR FEVER Albuterol/Ipratropium 3 ml 09/21/22 01:00 09/22/22 13:38 Ipratropium/Albuterol Sulfate 3 Ml Ampul.Neb IH 10/21/22 00:59 3 ml Q6HRT WOO Administration Aspirin 81 mg 09/22/22 10:00 09/22/22 12:10 Aspirin 81 Mg Tablet.Ec PO 10/22/22 09:59 81 mg QAM WOO Administration Clopidogrel Bisulfate 75 mg 09/21/22 11:00 09/22/22 12:10 Clopidogrel Bisulfate 75 Mg Tablet PO 10/21/22 10:59 75 mg DAILY WOO Administration Methylprednisolone Sodium 0 mg 09/22/22 17:16 Succinate 60 mg/ Sterile Water IV 10/22/22 17:15 2 ml BID WOO Enoxaparin Sodium 40 mg 09/21/22 10:00 09/22/22 12:10 Enoxaparin Sodium 40 Mg/0.4 Ml Syringe SQ 10/21/22 09:59 40 mg DAILY WOO Administration Furosemide 40 mg 09/22/22 17:00 Furosemide 40 Mg Tablet PO 10/22/22 16:59 BID DIURETIC WOO Ceftriaxone Sodium/Dextrose 1 g in 50 mls @ 100 mls/hr 09/21/22 22:00 09/21/22 20:42 Rocephin 1 Gm-D5w 50 Ml Bag IV 09/24/22 21:59 100 mls/hr Q24H22 WOO Administration Azithromycin 500 mg in 250 mls @ 250 mls/hr 09/21/22 22:00 09/21/22 20:52 Zithromax 500 Mg/ 250 Ml Nacl Premix IV 10/21/22 21:59 250 mls/hr Q24H22 WOO Administration Sodium Chloride 1,000 mls @ 20 mls/hr 09/21/22 00:45 09/21/22 02:25 Sodium Chloride 0.9% 1000 Ml IV 10/21/22 00:44 20 mls/hr .Q24H WOO Administration Oseltamivir Phosphate 75 mg 09/21/22 10:00 09/22/22 12:10 Oseltamivir 75 Mg Cap PO 09/26/22 09:59 75 mg BID WOO Administration Pantoprazole Sodium 40 mg 09/21/22 10:00 09/22/22 12:09 Pantoprazole 40 Mg Vial IV 10/21/22 09:59 40 mg Q24H10 WOO Administration Advair Disc 100/50 1 each 09/22/22 19:00 IH 10/22/22 18:59 BIDRT WOO Potassium Chloride 20 meq 09/21/22 22:00 09/22/22 12:10 Potassium Chloride Tab 10 Meq Tab PO 10/21/22 21:59 20 meq DAILY WOO Administration Simvastatin 20 mg 09/21/22 22:00 09/21/22 20:50 Simvastatin 20 Mg Tablet PO 10/21/22 21:59 20 mg HS WOO Administration Discontinued Medications Generic Name Dose Route Start Last Admin Trade Name Freq PRN Reason Stop Dose Admin Albuterol/Ipratropium 3 ml 09/20/22 19:13 09/20/22 19:25 Ipratropium/Albuterol Sulfate 3 Ml Ampul.Neb IH 09/20/22 19:14 3 ml STAT ONE Administration Albuterol/Ipratropium Confirm 09/20/22 19:24 Ipratropium/Albuterol Sulfate 3 Ml Ampul.Neb Administered 09/20/22 19:25 Dose 3 ml IH .STK-MED ONE Aspirin 324 mg 09/20/22 20:51 09/20/22 21:18 Aspirin 81 Mg Tab.Chew PO 09/20/22 20:52 324 mg STAT ONE Administration Furosemide 40 mg 09/21/22 09:03 09/21/22 09:47 Furosemide 40 Mg/4 Ml Vial IV 09/21/22 09:04 40 mg STAT ONE Administration Furosemide 40 mg 09/21/22 17:00 09/21/22 20:54 Furosemide 40 Mg Tablet PO 10/21/22 16:59 Not Given BID DIURETIC WOO Furosemide 40 mg 09/21/22 18:15 09/22/22 05:50 Furosemide 40 Mg/4 Ml Vial IV 09/22/22 18:16 40 mg Q12H WOO Administration Furosemide 40 mg 09/23/22 10:00 Furosemide 40 Mg Tablet PO 10/23/22 09:59 BID DIURETIC WOO Ceftriaxone Sodium/Dextrose 2 g in 50 mls @ 100 mls/hr 09/20/22 21:19 09/20/22 22:11 Rocephin 2 Gm-D5w 50ml Bag IV 09/20/22 21:48 100 ml/hr STAT STA 100 mls/hr Administration Azithromycin 500 mg in 250 mls @ 250 mls/hr 09/20/22 21:19 09/20/22 22:34 Zithromax 500 Mg/ 250 Ml Nacl Premix IV 09/20/22 22:18 250 mls/hr STAT STA 250 mls/hr Administration Ceftriaxone Sodium/Dextrose Confirm 09/20/22 22:10 Rocephin 2 Gm-D5w 50ml Bag Administered 09/20/22 22:11 Dose 2 g in 50 mls @ ud IV .STK-MED ONE Dobutamine HCl/Dextrose 250 mls @ 6.015 mls/hr 09/20/22 23:25 09/21/22 07:57 Dobutrex 500 Mg/D5w 250 Ml IV 10/20/22 23:24 4.5 mcg/kg/min .Q24H PRN 10.826 mls/hr CHF/HYPOTENSION Titration Protocol 2.5 MCG/KG/MIN Dopamine HCl/Dextrose 250 mls @ 7.313 mls/hr 09/21/22 08:56 09/21/22 11:45 Dopamine 400 Mg/D5w 250ml Premix IV 10/21/22 08:55 0 mcg/kg/min .Q24H PRN 0 mls/hr SEVERE HYPOTENSION Titration Protocol 2.5 MCG/KG/MIN Oseltamivir Phosphate 75 mg 09/20/22 22:41 09/20/22 22:43 Oseltamivir 75 Mg Cap PO 09/20/22 22:42 75 mg STAT ONE Administration Oseltamivir Phosphate Confirm 09/20/22 22:43 Oseltamivir 75 Mg Cap Administered 09/20/22 22:44 Dose 75 mg PO .STK-MED ONE Potassium Bicarbonate 40 meq 09/22/22 17:15 Potassium Bicarbonate 25 Meq Tab PO 09/22/22 17:16 ONCE ONE Fluticasone/Salmeterol 2 puff 09/21/22 19:00 Fluticasone/Salmeterol 60 Puff Common Canister IH 10/21/22 18:59 BIDRT WOO Intake & Output (Last 24 hours) 09/20/22 09/21/22 09/22/22 09/23/22 11:59 11:59 11:59 11:59 Intake Total 108 780 Output Total 825 450 Balance -717 330 Weight 78 kg 77.3 kg Microbiology Results (Last 24 hours) 09/21/22 Unknown Urine, Catheterized Urine Culture - Preliminary <10K NORMAL SKIN INÉS PROBABLE SKIN CONTAMINANT 09/20/22 17:30 Blood Blood Culture Gram Stain - Pending 09/20/22 17:30 Blood Blood Culture - Preliminary NO GROWTH TO DATE 09/20/22 17:20 Blood Blood Culture Gram Stain - Pending 09/20/22 17:20 Blood Blood Culture - Preliminary NO GROWTH TO DATE Laboratory Results (Last 24 hours) 09/22/22 09/22/22 09/22/22 12:19 12:19 12:19 WBC 8.9 RBC 4.33 Hgb 12.8 Hct 42.7 MCV 98.6 MCH 29.6 MCHC 30.0 L RDW 14.6 H Plt Count 193 MPV 10.3 Puncture Site pCO2 pO2 Base Excess O2 Saturation ABG pH ABG HCO3 ABG O2 Sat (Measured) Nirmal Test A-a Gradient a/A Ratio Hemoglobin Carboxyhemoglobin Methemoglobin Potassium 3.9 Temperature POC O2 Flow Rate Sodium 142 Chloride 96 L Carbon Dioxide 46 H Anion Gap 3.9 L BUN 54 H Creatinine 1.71 H Estimated GFR 31.4 Glucose 78 Calcium 8.0 L Total Bilirubin 0.40 AST 32 ALT 41 H Alkaline Phosphatase 107 Troponin I 0.171 H* Serum Total Protein 6.6 Albumin 3.5 09/21/22 19:26 WBC RBC Hgb Hct MCV MCH MCHC RDW Plt Count MPV Puncture Site RIGHT BRACHIAL pCO2 83 H* pO2 201 H* Base Excess 10.1 H O2 Saturation 97.3 ABG pH 7.29 L ABG HCO3 39.9 H* ABG O2 Sat (Measured) 99.4 Nirmal Test NOT APPLICABLE A-a Gradient 52 a/A Ratio 0.79 Hemoglobin 12.6 Carboxyhemoglobin 1.6 Methemoglobin 0.5 L Potassium 3.3 L Temperature 37.0 POC O2 Flow Rate 50 Sodium Chloride Carbon Dioxide Anion Gap BUN Creatinine Estimated GFR Glucose Calcium Total Bilirubin AST ALT Alkaline Phosphatase Troponin I Serum Total Protein Albumin Orders (Last 24 hours) Category Date Time Status Consult Cardiology ROUTINE Cons 09/22/22 11:57 Active Consult Nephrology ROUTINE Cons 09/22/22 02:29 Active Tele-Health Consult ROUTINE Cons 09/21/22 21:28 Active ECHO W/2D AND DOPPLER [US] Routine Exams 09/22/22 11:23 Taken MRI BRAIN W/O CONTRAST [MRI] Routine Exams 09/22/22 02:29 Completed ABG [ARTERIAL BLOOD GASES] Stat Lab 09/21/22 19:26 Completed BNP [NT PRO BNP] AM.LAB Lab 09/23/22 04:00 Ordered CBC AM.LAB Lab 09/23/22 04:00 Ordered CBC Urgent Lab 09/22/22 12:19 Completed CMP AM.LAB Lab 09/23/22 04:00 Ordered CMP Urgent Lab 09/22/22 12:19 Completed TROPONIN Stat Lab 09/22/22 12:19 Completed Aspirin EC 81 mg [Ecotrin 81 mg] Med 09/22/22 10:00 Active 81 mg PO QAM Azithromycin 500 mg/250 ml [Zithromax 500 MG/ 250 ML Med 09/21/22 22:00 Active NaCl Premix] 500 mg in 250 ml IV Q24H22 Ceftriaxone 1 GM/50 ML PREMIX* [ROCEPHIN 1 Gm-D5w 50 ml Med 09/21/22 22:00 Active Bag] 1 g in 50 ml IV Q24H22 Fluticasone/Salmeterol 45 [Advair Hfa 45/ Common Med 09/21/22 19:00 Discontinued Canister*] 2 puff IH BIDRT Furosemide 40 mg [Lasix 40 MG] Med 09/21/22 17:00 Discontinued 40 mg PO BID DIURETIC Furosemide 40 mg [Lasix 40 MG] Med 09/22/22 17:00 Active 40 mg PO BID DIURETIC Furosemide 40 mg [Lasix 40 MG] Med 09/23/22 10:00 Discontinued 40 mg PO BID DIURETIC Furosemide 40 mg/4 ml [Lasix 40 MG/4 ML] Med 09/21/22 18:15 Discontinued 40 mg IV Q12H Methylprednis Sod Succ 125 mg* [solu-MEDROL] 60 mg Med 09/22/22 17:16 Active Water For Injection,Sterile [Sterile H2O 10 ml] 2 ml IV BID Patient Own Med [Patient Own Medication] Med 09/22/22 19:00 Active 1 each IH BIDRT Potassium Bicarbonate [K-Lyte ] Med 09/22/22 17:15 Discontinued 40 meq PO ONCE ONE Potassium Chloride Tab* [Klor Con] Med 09/21/22 22:00 Active 20 meq PO DAILY Simvastatin 20Mg [Zocor 20Mg] Med 09/21/22 22:00 Active 20 mg PO HS EEG 41-60 Minutes (Normal) ONCE RT 09/22/22 02:34 Completed Respiratory MDI BID RT 09/22/22 16:10 Active Patient Care Notes (Last 24 hours) 09/22/22 16:40 (created 09/22/22 17:24) Nursing Note by Olive Morillo DR. CALLED TO CONSULT [id number] Initialized on 09/22/22 17:24 - END OF NOTE 09/22/22 14:24 (created 09/22/22 14:31) Nursing Note by Olive Morillo notified dr. [email or web address]'s office that patient is here. Initialized on 09/22/22 14:31 - END OF NOTE 09/22/22 13:57 Nursing Note by Sunil [facility] called and spoke with Brandie again. There continues to be no one that answers the phone after she places us on hold. Dr Marie notified. Initialized on 09/22/22 13:57 - END OF NOTE 09/22/22 12:44 Nursing Note by Sunil Wylie Dr's office called and notified of consult. Spoke with Brandie. Initialized on 09/22/22 12:44 - END OF NOTE 09/22/22 11:16 Nursing Note by Olive Morillo CALLED TO REQUEST UPDATE ON CONSULT. JENNA SAID DR. ROLDAN OR HIS PA WOULD CALL AROUND 1430 OR LATER. Initialized on 09/22/22 11:16 - END OF NOTE 09/22/22 09:42 (created 09/22/22 09:46) Nursing Note by Olive Morillo CALLED CONSULT TO DR. ROLDAN'S OFFICE SPOKE WITH JENNA. SHE WILL REPORT CREATININE TO DR. ROLDAN AND LET US KNOW IF HE'D LIKE TO DO CONSULT IN PERSON OR VIA PHONE. Initialized on 09/22/22 09:46 - END OF NOTE 09/22/22 02:34 Nursing Note by Susie Headley Teleneurology consult completed orders per Neurologist OK by Dr Munoz for Echo with bubble, MRI without contrast, renal consult, EEG, and add baby Aspirin daily to Plavix daily. Initialized on 09/22/22 02:34 - END OF NOTE 09/21/22 21:55 Nursing Note by Susie Headley 2041 This RN at bedside when pt began to have slurred aphasic speech, pt recognized that she was confused and her speech was off at the same to pt had involuntary right leg movement (fast twitching noted). PT alert to person place and time at time of episode. PT daughter reported a similar episode that occured last pm and lasted approx 4 minutes with involuntary arm movement prior to pt calling EMS. PT has had intermittent confusion noted today with sentences off topic though no slurred or garbled speech. Initialized on 09/21/22 21:55 - END OF NOTE Code(s): A41.89 - OTHER SPECIFIED SEPSIS; B97.89 - OTH VIRAL AGENTS THE CAUSE OF DISEASES CLASSD [id number] (2) CHF exacerbation Current Visit: Yes Status: Acute Qualifiers: Heart failure type: combined systolic and diastolic Qualified Code(s): I50.43 - Acute on chronic combined systolic (congestive) and diastolic (congestive) heart failure Code(s): I50.9 - HEART FAILURE, UNSPECIFIED (3) Elevated troponin Current Visit: Yes Status: Acute Code(s): R77.8 - OTHER SPECIFIED ABNORMALITIES OF PLASMA PROTEINS (4) Influenza A Current Visit: Yes Status: Acute Code(s): J10.1 - FLU DUE TO OTH IDENT INFLUENZA VIRUS W OTH RESP MANIFEST (5) Pneumonia Current Visit: Yes Status: Acute Code(s): J18.9 - PNEUMONIA, UNSPECIFIED ORGANISM
[2022-09-22] MEDS: Lasix 40 MG PO SCH (18:14)
[2022-09-22] MEDS: solu-MEDROL 60 MG, Sterile H2O 10 ml 2 ML IV SCH ×4 (18:14→21:53)
[2022-09-22] MEDS: PATIENT OWN MEDICATION IH SCH (18:39)
[2022-09-22] MEDS: Zithromax 500 MG/ 250 ML NaCl Premix 500 MG/250 ML IVPB IV SCH (21:52)
[2022-09-22] MEDS: ZOCOR 20MG PO SCH (21:53)
[2022-09-22] MEDS: ROCEPHIN 1 Gm-D5w 50 ml Bag** 1 G/50 ML IVPB IV SCH (23:13)
[2022-09-23] MEDS: DUONEB 0.5-3 MG/3 ml Neb IH SCH ×3 (00:24→13:20)
[2022-09-23 05:39] LABS: Hematocrit 37.4 % (35-47); Hemoglobin 11.6 g/dL (12.0-16.0); Mean Cell Volume 96.4 fL (78-100); Mean Corpuscular Hemoglobin 29.9 pg (26-32); Mean Platelet Volume 11.1 fL (7.5-11.0); Platelet Count 179 x10^3/uL (150-450); Red Blood Count 3.88 x10^6/uL (4.1-5.4); Red Cell Distribution Width 14.6 % (11.5-14.0); White Blood Count 4.8 x10^3/uL (4.0-10.5)
[2022-09-23 06:25] LABS: ALBUMIN 3.1 g/dL (3.5-5.0); BILIRUBIN,TOTAL 0.3 mg/dL (0.2-1.3); Calcium 7.9 mg/dL (8.4-10.2); Creatinine 1 1.31 mg/dL (0.52-1.04); EST GLOMERULAR FILTRATION RATE 42.7 ML/MIN; Potassium 4.3 mmol/L (3.5-5.1); Total Protein 5.8 g/dL (6.3-8.2)
[2022-09-23] MEDS: PATIENT OWN MEDICATION IH SCH (06:38)
[2022-09-23 07:57] LABS: ANION GAP 6.3 MEQ/L (5-15)
[2022-09-23] MEDS ORDERED: LASIX 20 MG PO SCH (10:00)
[2022-09-23] MEDS ORDERED: Lasix 40 MG PO SCH (10:00)
[2022-09-23] MEDS: Lasix 40 MG PO SCH (11:07)
[2022-09-23] MEDS: ECOTRIN 81 MG PO SCH (11:07)
[2022-09-23] MEDS: Klor Con PO SCH (11:08)
[2022-09-23] MEDS: PLAVIX Tablet PO SCH (11:08)
[2022-09-23] MEDS: PROTONIX 40 MG IV IV SCH (11:10)
[2022-09-23] MEDS: ENOXAPARIN SODIUM SQ SCH (11:10)
[2022-09-23] MEDS: Tamiflu 75MG Capsule PO SCH (11:13)
[2022-09-23] MEDS: solu-MEDROL 60 MG, Sterile H2O 10 ml 2 ML IV SCH ×2 (11:13)
--- NOTE | 2022-09-23 13:30 | ECHO ---
Transthoracic echocardiographic examination and color Doppler was done on 09/22/2022. INDICATION: Hypoxia, history of hypertension. IMPRESSION: 1) NO REGIONAL WALL MOTION ABNORMALITY. ESTIMATED GLOBAL LEFT VENTRICULAR EJECTION FRACTION BETWEEN 60 TO 65%. 2) TRACE MITRAL REGURGITATION. 3) TRACE TRICUSPID REGURGITATION. RIGHT VENTRICULAR SYSTOLIC PRESSURE OF 35 MM OF MERCURY. 4) LEFT VENTRICULAR HYPERTROPHY. The left ventricle is visualized and demonstrated adequate motion of all the segments. Estimated global left ventricular ejection fraction around 60 to 65%. There is mild left ventricular hypertrophy. The mitral valve is seen and this opens adequately. There is trace mitral regurgitation. Left atrium is normal. The aortic valve opens adequately. There is no significant gradient across the left ventricular outflow tract. The right side chambers are normal. There is trace tricuspid regurgitation. The right ventricular systolic pressure of 35 mm of Mercury.
[2022-09-23 13:32] VITALS: PULSE 78; O2SAT 95
[2022-09-23 13:57] VITALS: BP 120/59
--- NOTE | 2022-09-23 22:43 | PCM.DS ---
Discharge Summary Date of Admission: 09/21/22 00:05 Admitting Physician: NEERAJ VACA Consults: Consults on Case 09/21/22 21:28 Tele-Health Consult ROUTINE 09/22/22 02:29 Consult Nephrology ROUTINE 09/22/22 11:57 Consult Cardiology ROUTINE Primary Care Provider: NEERAJ VACA Allergies Allergies No Known Drug Allergies Allergy (Verified 09/21/22 01:08) Hospital Summary - Hospital Course Hospital Course: Chief Complaint Diagnosis CHF exacerbation, Respiratory failure, pneumonia , elevated troponin, LARRY Allergies Allergy/AdvReac Type Severity Reaction Status Date / Time No Known Drug Allergies Allergy Verified 09/21/22 01:08 Vital Signs (Last 24 hours) Temp Pulse Resp BP Pulse Ox 09/23/22 13:30 78 20 95 09/23/22 12:00 96.9 F 80 18 120/59 95 09/23/22 07:59 97.6 F 84 20 101/57 92 L 09/23/22 06:38 91 H 12 91 L 09/23/22 04:00 97.3 F 85 18 105/60 91 L 09/23/22 00:24 81 18 91 L 09/23/22 00:00 97.7 F 87 22 122/67 91 L Home Medications Medication Instructions Recorded Confirmed Last Taken Type Clopidogrel Bisulfate [Plavix] 75 mg PO DAILY 09/20/22 09/21/22 Unknown History Fluticasone/Salmeterol [Advair 2 puffs IH DAILY 09/20/22 09/20/22 Unknown History 100-50 Diskus] Furosemide 20 mg [Lasix 20 40 mg PO BID 09/20/22 09/21/22 Unknown History mg] Atorvastatin Calcium 20 mg PO DAILY 09/21/22 09/21/22 Unknown History Aspirin EC 81 mg [Ecotrin 81 81 mg PO DAILY #30 tablet 09/23/22 Unknown Rx mg] Azithromycin [Azithromycin 250 mg 250 mg PO UD #6 tablet 09/23/22 Unknown Rx Pack] Oseltamivir 75 mg [Tamiflu 75MG 75 mg PO BID 4 Days #7 cap 09/23/22 Unknown Rx Capsule] Current Medications Discontinued Medications Generic Name Dose Route Start Last Admin Trade Name Freq PRN Reason Stop Dose Admin Acetaminophen 650 mg 09/21/22 00:07 09/22/22 15:44 Acetaminophen 325 Mg Tablet PO 10/21/22 00:06 650 mg Q4H PRN PRN Administration PAIN AND/OR FEVER Albuterol/Ipratropium 3 ml 09/20/22 19:13 09/20/22 19:25 Ipratropium/Albuterol Sulfate 3 Ml Ampul.Neb 09/20/22 19:14 3 ml STAT ONE Administration Albuterol/Ipratropium Confirm 09/20/22 19:24 Ipratropium/Albuterol Sulfate 3 Ml Ampul.Neb Administered 09/20/22 19:25 Dose 3 ml IH .STK-MED ONE Albuterol/Ipratropium 3 ml 09/21/22 01:00 09/23/22 13:20 Ipratropium/Albuterol Sulfate 3 Ml Ampul.Neb 10/21/22 00:59 3 ml Q6HRT WOO Administration Aspirin 324 mg 09/20/22 20:51 09/20/22 21:18 Aspirin 81 Mg Tab.Chew PO 09/20/22 20:52 324 mg STAT ONE Administration Aspirin 81 mg 09/22/22 10:00 09/23/22 11:07 Aspirin 81 Mg Tablet.Ec PO 10/22/22 09:59 81 mg QAM WOO Administration Clopidogrel Bisulfate 75 mg 09/21/22 11:00 09/23/22 11:08 Clopidogrel Bisulfate 75 Mg Tablet PO 10/21/22 10:59 75 mg DAILY WOO Administration Methylprednisolone Sodium 0 mg 09/22/22 17:16 09/23/22 11:13 Succinate 60 mg/ Sterile Water IV 10/22/22 17:15 60 mg 2 ml BID WOO Administration Enoxaparin Sodium 40 mg 09/21/22 10:00 09/23/22 11:10 Enoxaparin Sodium 40 Mg/0.4 Ml Syringe SQ 10/21/22 09:59 40 mg DAILY WOO Administration Furosemide 40 mg 09/21/22 09:03 09/21/22 09:47 Furosemide 40 Mg/4 Ml Vial IV 09/21/22 09:04 40 mg STAT ONE Administration Furosemide 40 mg 09/21/22 17:00 09/21/22 20:54 Furosemide 40 Mg Tablet PO 10/21/22 16:59 Not Given BID DIURETIC WOO Furosemide 40 mg 09/21/22 18:15 09/22/22 05:50 Furosemide 40 Mg/4 Ml Vial IV 09/22/22 18:16 40 mg Q12H WOO Administration Furosemide 40 mg 09/23/22 10:00 Furosemide 40 Mg Tablet PO 10/23/22 09:59 BID DIURETIC WOO Furosemide 40 mg 09/22/22 17:00 09/23/22 11:07 Furosemide 40 Mg Tablet PO 10/22/22 16:59 40 mg BID DIURETIC WOO Administration Ceftriaxone Sodium/Dextrose 2 g in 50 mls @ 100 mls/hr 09/20/22 21:19 09/20/22 22:11 Rocephin 2 Gm-D5w 50ml Bag IV 09/20/22 21:48 100 ml/hr STAT STA 100 mls/hr Administration Azithromycin 500 mg in 250 mls @ 250 mls/hr 09/20/22 21:19 09/20/22 22:34 Zithromax 500 Mg/ 250 Ml Nacl Premix IV 09/20/22 22:18 250 mls/hr STAT STA 250 mls/hr Administration Ceftriaxone Sodium/Dextrose Confirm 09/20/22 22:10 Rocephin 2 Gm-D5w 50ml Bag Administered 09/20/22 22:11 Dose 2 g in 50 mls @ ud IV .STK-MED ONE Dobutamine HCl/Dextrose 250 mls @ 6.015 mls/hr 09/20/22 23:25 09/21/22 07:57 Dobutrex 500 Mg/D5w 250 Ml IV 10/20/22 23:24 4.5 mcg/kg/min .Q24H PRN 10.826 mls/hr CHF/HYPOTENSION Titration Protocol 2.5 MCG/KG/MIN Ceftriaxone Sodium/Dextrose 1 g in 50 mls @ 100 mls/hr 09/21/22 22:00 04/08 23:13 Rocephin 1 Gm-D5w 50 Ml Bag IV 09/24/22 21:59 100 mls/hr Q24H22 WOO Administration Azithromycin 500 mg in 250 mls @ 250 mls/hr 09/21/22 22:00 09/22/22 21:52 Zithromax 500 Mg/ 250 Ml Nacl Premix IV 10/21/22 21:59 250 mls/hr Q24H22 WOO Administration Sodium Chloride 1,000 mls @ 20 mls/hr 09/21/22 00:45 09/21/22 02:25 Sodium Chloride 0.9% 1000 Ml IV 10/21/22 00:44 20 mls/hr .Q24H WOO Administration Dopamine HCl/Dextrose 250 mls @ 7.313 mls/hr 09/21/22 08:56 09/21/22 11:45 Dopamine 400 Mg/D5w 250ml Premix IV 10/21/22 08:55 0 mcg/kg/min .Q24H PRN 0 mls/hr SEVERE HYPOTENSION Titration Protocol 2.5 MCG/KG/MIN Oseltamivir Phosphate 75 mg 09/20/22 22:41 09/20/22 22:43 Oseltamivir 75 Mg Cap PO 09/20/22 22:42 75 mg STAT ONE Administration Oseltamivir Phosphate Confirm 09/20/22 22:43 Oseltamivir 75 Mg Cap Administered 09/20/22 22:44 Dose 75 mg PO .STK-MED ONE Oseltamivir Phosphate 75 mg 09/21/22 10:00 09/23/22 11:13 Oseltamivir 75 Mg Cap PO 09/26/22 09:59 75 mg BID WOO Administration Pantoprazole Sodium 40 mg 09/21/22 10:00 09/23/22 11:10 Pantoprazole 40 Mg Vial IV 10/21/22 09:59 40 mg Q24H10 WOO Administration Advair Disc 100/50 1 each 09/22/22 19:00 09/23/22 06:38 IH 10/22/22 18:59 1 each BIDRT WOO Administration Potassium Bicarbonate 40 meq 09/22/22 17:15 09/22/22 18:14 Potassium Bicarbonate 25 Meq Tab PO 09/22/22 17:16 40 meq ONCE ONE Administration Potassium Chloride 20 meq 09/21/22 22:00 09/23/22 11:08 Potassium Chloride Tab 10 Meq Tab PO 10/21/22 21:59 20 meq DAILY WOO Administration Fluticasone/Salmeterol 2 puff 09/21/22 19:00 Fluticasone/Salmeterol 60 Puff Common Canister IH 10/21/22 18:59 BIDRT WOO Simvastatin 20 mg 09/21/22 22:00 09/22/22 21:53 Simvastatin 20 Mg Tablet PO 10/21/22 21:59 20 mg HS WOO Administration Intake & Output (Last 24 hours) 09/21/22 09/22/22 09/23/22 09/24/22 11:59 11:59 11:59 11:59 Intake Total 108 780 300 Output Total 825 450 Balance -717 330 300 Weight 78 kg 77.3 kg 79.5 kg Microbiology Results (Last 24 hours) 09/21/22 Unknown Urine, Catheterized Urine Culture - Final MIXED INÉS; 3 OR MORE TYPES. NO PREDOMINANT ORGANISM. NO FURTHER WORKUP. PLEASE RESUBMIT IF CLINICALLY INDICATED. Laboratory Results (Last 24 hours) 09/23/22 09/23/22 05:06 05:06 WBC 4.8 RBC 3.88 L Hgb 11.6 L Hct 37.4 MCV 96.4 MCH 29.9 MCHC 31.0 L RDW 14.6 H Plt Count 179 MPV 11.1 H Sodium 141 Potassium 4.3 Chloride 96 L Carbon Dioxide 43 H Anion Gap 6.3 BUN 48 H Creatinine 1.31 H Estimated GFR 42.7 Glucose 141 H Calcium 7.9 L Total Bilirubin 0.30 AST 20 ALT 32 Alkaline Phosphatase 88 NT-Pro-B Natriuret Pep 2430 H Serum Total Protein 5.8 L Albumin 3.1 L Orders (Last 24 hours) Category Date Time Status Discharge Planning,Consult Routine Discharge 09/23/22 Active Discharge Routine Discharge 09/23/22 12:18 Ordered BNP [NT PRO BNP] AM.LAB Lab 09/23/22 05:06 Completed CBC AM.LAB Lab 09/23/22 05:06 Completed CMP AM.LAB Lab 09/23/22 05:06 Completed Furosemide 40 mg [Lasix 40 MG] Med 09/23/22 10:00 Discontinued 40 mg PO BID DIURETIC Qualify for Home Oxygen TODAY RT 09/23/22 12:27 Completed Patient Care Notes (Last 24 hours) 09/23/22 15:58 (created 09/23/22 16:06) Nursing Note by Olive Morillo [facility] Initialized on 09/23/22 16:06 - END OF NOTE 09/23/22 13:27 Respiratory Note by Elba Moise Resting room air sat 87%. Placed on 3L NC sats up to 90% Increased to 4l NC sats up to 95% Initialized on 09/23/22 13:27 - END OF NOTE 09/23/22 13:07 Case Management Note by Vanessa Bettencourt S/W PATIENT ABOUT NEEDS AT DC- SHE IS AGREEABLE TO [facility] AND WOULD LIKE TO USE [facility]. SHE IS ALSO AGREEABLE FOR HOME O2 WITH [facility]. SHE DENIES ANY OTHER NEEDS. SHE WAS ALREADY GIVEN PULSE OX. SHE REPORTS HER SON THAT LIVES WITH HER WILL BE ABLE TO ASSIST HER IF NEEDED. SHE DENIES ANY OTHER NEEDS Initialized on 09/23/22 13:07 - END OF NOTE 09/23/22 12:36 Case Management Note by Vanessa Bettencourt REFERRAL [facility]XED TO [facility] THEY WERE NOTIFIED SHE IS DCING HOME TODAY. THEY WILL NEED FAXED DC INSTRUCTIONS, DC MED LIST AND DC SUUMARY ( IF AVAILABLE) TO [phone] Initialized on 09/23/22 12:36 - END OF NOTE 09/23/22 10:20 Case Management Note by Vanessa Bettencourt PATIENT GIVEN PULSE OX BY AID PER REQUEST Initialized on 09/23/22 10:20 - END OF NOTE - Vitals & Intake/Output Vital Signs: Vital Signs Temperature 96.9 F 09/23/22 12:00 Pulse Rate 78 09/23/22 13:30 Respiratory Rate 20 09/23/22 13:30 Blood Pressure 120/59 09/23/22 12:00 O2 Sat by Pulse Oximetry 95 09/23/22 13:30 Intake & Output: Intake & Output 09/21/22 09/22/22 09/23/22 09/24/22 11:59 11:59 11:59 11:59 Intake Total 108 780 300 Output Total 825 450 Balance -717 330 300 Weight 78 kg 77.3 kg 79.5 kg - Lab Result Diagrams: 09/23/22 05:06 09/23/22 05:06 Lab Results-Last 24 Hrs: Lab Results-Last 24 Hours 09/23/22 09/23/22 Range/Units 05:06 05:06 WBC 4.8 (4.0-10.5) x10^3/uL RBC 3.88 L (4.1-5.4) x10^6/uL Hgb 11.6 L (12.0-16.0) g/dL Hct 37.4 (35-47) % MCV 96.4 (78-100) fL MCH 29.9 (26-32) pg MCHC 31.0 L (32-36) g/dL RDW 14.6 H (11.5-14.0) % Plt Count 179 (150-450) x10^3/uL MPV 11.1 H (7.5-11.0) fL Sodium 141 (137-145) mmol/L Potassium 4.3 (3.5-5.1) mmol/L Chloride 96 L (98-107) mmol/L Carbon Dioxide 43 H (22-30) mmol/L Anion Gap 6.3 (5-15) MEQ/L BUN 48 H (7-17) mg/dL Creatinine 1.31 H (0.52-1.04) mg/dL Estimated GFR 42.7 ML/MIN Glucose 141 H (74-106) mg/dL Calcium 7.9 L (8.4-10.2) mg/dL Total Bilirubin 0.30 (0.2-1.3) mg/dL AST 20 (14-36) U/L ALT 32 (0-35) U/L Alkaline Phosphatase 88 (38-126) U/L NT-Pro-B Natriuret Pep 2430 H (0-900) pg/mL Serum Total Protein 5.8 L (6.3-8.2) g/dL Albumin 3.1 L (3.5-5.0) g/dL Micro Results-Entire Visit: Microbiology 09/21/22 Unknown Urine Culture - Final Urine, Catheterized MIXED INÉS; 3 OR MORE TYPES. NO PREDOMINANT ORGANISM. NO FURTHER WORKUP. PLEASE RESUBMIT IF CLINICALLY INDICATED. 09/20/22 17:30 Blood Culture - Preliminary Blood NO GROWTH TO DATE 09/20/22 17:20 Blood Culture - Preliminary Blood NO GROWTH TO DATE - Radiology Exams Ordered Rad Exams-Entire Visit: Radiology Procedures Category Date Time Status ECHO W/2D AND DOPPLER [US] Routine Exams 09/22/22 11:23 Completed MRI BRAIN W/O CONTRAST [MRI] Routine Exams 09/22/22 02:29 Completed - Procedures and Test Procedures and Tests throughout Hospitalization: Therapy Orders & Screens 09/20/22 20:09 Respiratory Therapy Assessment DAILY Comment: 09/21/22 00:07 Oxygen Nasal Cannula 4 lpm Comment: 09/21/22 01:29 RT Screen per Nursing Assess ONCE Comment: Protocol Order Physician Instructions: Greater than 3 points order RT Admission Screen Reason For Exam: Triggered on Admission Diagnosis: CHF exacerbation, Respiratory failure, pneumonia, elevated troponin, LARRY Diagnosis: CHF exacerbation, Respiratory failure, pneumonia, elevated troponin, LARRY Pneumonia: No Home O2: No Asthma: No CHF: Yes Home CPAP/BIPAP: No Home Nebs/MDI: Yes Total Points: 8 Smoking Cessation Education ONCE Comment: Diagnosis: CHF exacerbation, Respiratory failure, pneumonia, elevated troponin, LARRY Smoking Status: Current every day smoker How long have you smoked: 51 years Have you smoked in the past 12 months: Yes Approximately how many cigarettes per day: 20 Do you dip or chew tobacco: No 09/22/22 02:34 EEG 41-60 Minutes (Normal) ONCE Comment: Reason For Exam: Diagnosis: CHF exacerbation, Respiratory failure, pneumonia, elevated troponin, LARRY 09/22/22 16:10 Respiratory MDI BID Comment: Diagnosis: CHF exacerbation, Respiratory failure, pneumonia, elevated troponin, LARRY 09/23/22 12:27 Qualify for Home Oxygen TODAY Comment: Diagnosis: CHF exacerbation, Respiratory failure, pneumonia, elevated troponin, LARRY Discharge Exam General Appearance: no apparent distress, alert Neurologic Exam: alert, oriented x 3, cooperative, normal mood/affect, nml cerebellar function, sensation nml, No motor deficits Eye Exam: PERRL, EOMI, eyes nml inspection Ears, Nose, Throat Exam: normal ENT inspection, pharynx normal, moist mucous membranes Neck Exam: normal inspection, non-tender, supple, full range of motion Respiratory Exam: normal breath sounds, lungs clear, No respiratory distress Cardiovascular Exam: regular rate/rhythm, normal heart sounds Gastrointestinal/Abdomen Exam: soft, No tenderness, No mass Pelvic Exam: deferred Rectal Exam: deferred Back Exam: normal inspection, normal range of motion, No CVA tenderness, No vertebral tenderness Extremity Exam: normal inspection, normal range of motion Skin Exam: normal color, warm, dry Final Diagnosis/Problem List - Final Discharge Diagnosis/Problem (1) Sepsis, viral Status: Acute Priority: High Code(s): A41.89 - OTHER SPECIFIED SEPSIS; B97.89 - OTH VIRAL AGENTS THE CAUSE OF DISEASES CLASSD ELSWHR (2) CHF exacerbation Status: Resolved Code(s): I50.9 - HEART FAILURE, UNSPECIFIED (3) Elevated troponin Status: Resolved Code(s): R77.8 - OTHER SPECIFIED ABNORMALITIES OF PLASMA PROTEINS (4) Influenza A Status: Resolved Code(s): J10.1 - FLU DUE TO OTH IDENT INFLUENZA VIRUS W OTH RESP MANIFEST (5) Pneumonia Status: Resolved Code(s): J18.9 - PNEUMONIA, UNSPECIFIED ORGANISM (6) Cerebrovascular accident (CVA) involving right cerebral hemisphere Status: Resolved Assessment & Plan: mostlikely due to hypoperfusion due to hypotension Code(s): I63.9 - CEREBRAL INFARCTION, UNSPECIFIED (7) Cerebrovascular accident without paresis Status: Resolved Code(s): I63.9 - CEREBRAL INFARCTION, UNSPECIFIED - Discharge Discharge Date: 09/23/22 Disposition: Home, Self-Care Condition: Stable Prescriptions: New Azithromycin [Azithromycin 250 mg Pack] 250 mg PO UD #6 tablet Oseltamivir 75 mg [Tamiflu 75MG Capsule] 75 mg PO BID 4 Days #7 cap Aspirin EC 81 mg [Ecotrin 81 mg] 81 mg PO DAILY #30 tablet Continue Furosemide 20 mg [Lasix 20 mg] 40 mg PO BID Fluticasone/Salmeterol [Advair 100-50 Diskus] 2 puffs IH DAILY Clopidogrel Bisulfate [Plavix] 75 mg PO DAILY Atorvastatin Calcium 20 mg PO DAILY Instructions: Flu, Adult (DC), Stroke (DC) Additional Instructions: WEAR 4L/NC AT ALL TIMES, CALL [facility] AT [phone] WHEN YOU GET HOME SO THEY CAN DELIVER YOUR HOME CONCENTRATOR STAY ON YOUR ASPIRIN AND PLAVIX. FOLLOWUP WITH DR VACA IN 2 WEEKS. [facility] SET UP. THEY WILL CALL YOU TO ARRANGE AN APT TO SEE YOU. THEIR PHONE NUMBER IS [phone] Follow up with: NEERAJ VACA MD [Primary Care Provider] -
--- NOTE | 2022-09-24 08:33 | CONS ---
TELE-CONSULT DATE: 09/22/2022 REASON FOR CONSULT: Evaluation of renal dysfunction, fluid and electrolyte management. Tele-consult was facilitated through nurse, Isiah Wylie. HISTORY: Maryjane Oliva is a 72-year-old lady who follows with Dr. Wilson. Comorbidities including chronic obstructive pulmonary disease, congestive heart failure, tobacco use. Baseline creatinine 1.3 mg%. The patient was admitted to the hospital with worsening shortness of breath. The patient had productive cough. She had question of CVA. No fever, chills or rigors. Leg swelling was present. Creatinine went to around 1.8 mg%. Renal consultation was called. REVIEW OF SYSTEMS: The patient is feeling better, was on Lasix and was on IV fluids. Appetite has been improving. Oral intake is fair. The patient is awake, answers appropriately. No dysuria. No difficulty in urination. No fall, trauma, focal weaknesses noted at this time. System review was negative essentially other than leg swelling, shortness of breath initially which is improving. All systems were reviewed. PAST MEDICAL HISTORY: CVA. Hypertension. Dyslipidemia. Chronic kidney disease Stage 3. Bronchitis. Chronic obstructive pulmonary disease. Pneumonia. PAST SURGICAL HISTORY: Cholecystectomy. Hysterectomy. Tubal ligation. MEDICATIONS: Included Lasix 40 mg p.o. b.i.d., atorvastatin, clopidogrel. In hospital medications were reviewed. ALLERGIES: NKDA. SOCIAL HISTORY: Every day smoker. No alcohol abuse. FAMILY HISTORY: No history of renal problems in the family. PHYSICAL EXAMINATION: Physical examination as reported by the RN. Vital signs were reviewed. HEENT: Normocephalic, atraumatic, slightly pale conjunctivae. NECK: Supple. CHEST: Bilateral wheezing, occasional crackles. CVS: S1, S2 normal. ABDOMEN: Soft, nontender. EXTREMITIES: Edema present bilaterally. SKIN: No rash. NEUROLOGIC: Alert, awake, oriented x3. LAB DATA AND TESTS: Labs were reviewed. Hemoglobin was noted to be around 12. Peak creatinine 1.8, creatinine was improving at around 1.6. Potassium was low 3.4 to 3.7. ASSESSMENT: 1) Acute kidney injury secondary to cardiorenal syndrome, hypoxemia, shortness of breath. Continue Lasix. Discontinue IV fluids. I would recommend DuoNeb. Renal functions should improve spontaneously. No need for any renal replacement therapy. 2) Congestive heart failure, type unspecified, decompensated. Leg edema present. Shortness of breath improving. Continue Lasix b.i.d. 3) Hypokalemia. Replace potassium. 4) Chronic obstructive pulmonary disease exacerbation. Continue Solu-Medrol. DuoNeb started on a routine basis. 5) Questionable pneumonia. Continue antibiotics. 6) CVA, old versus new. Tele-neurology consult has been called. 7) Hypertension resolved. 8) Flu positive status. Continue Tamiflu at present dose. No need for dose adjustment. All questions answered. If renal functions continue improve can be discharged tomorrow. Follow up with Dr. Wilson within one to two weeks.
== END 2022-09-23 14:41 | disposition home or self-care (01) | DRG 871 ==
LOC: ED 19:10 → ICU 09-21 00:05 → MED SURG 09-21 17:00
PROVIDERS: ADMIT General Practice; ATTEND General Practice
DX: A41.89 Other specified sepsis (principal); A41.9 Sepsis, unspecified organism; I63.9 Cerebral infarction, unspecified; J18.9 Pneumonia, unspecified organism; I11.0 Hypertensive heart disease with heart failure; I50.9 Heart failure, unspecified; R77.8 Other specified abnormalities of plasma proteins; J10.1 Influenza due to other identified influenza virus with other respiratory manifestations; Z79.01 Long term (current) use of anticoagulants; Z79.899 Other long term (current) drug therapy; Z20.828 Contact with and (suspected) exposure to other viral communicable diseases; Z72.0 Tobacco use
CPT/HCPCS: 0241U; 36000; 36415; 36600; 70450; 70551; 71045; 80048; 80053; 81015; 82375; 82803; 83605; 83735; 83880; 84145; 84484; 85025; 85027; 87040; 87086; 93005; 93041; 93306; 94640; 94760; 94762; 95812; 96365; 96367; 99285; 99291; 96374; J0456; J0696; J1250; J1265; J1650; J1940; J2930; A9270-GY